=== PATIENT | male | born 1970 | race Caucasian/White ===

== ENCOUNTER 2020-03-18 07:40 | Outpatient (REF) | payer OTHER, SELFPAY ==
[2020-03-18 09:43] LABS: Cholesterol 125 mg/dL; Glucose Fasting 137 mg/dL (60-99); HDL Cholesterol 37 mg/dL; LDL Cholesterol Calculated 40 mg/dl; Triglycerides 240 mg/dL
[2020-03-18 09:55] LABS: Estimated Average Glucose 166 mg/dL; Hemoglobin A1c % 7.4 %
== END 2020-03-18 07:41 | disposition home or self-care (01) ==
LOC: HO.LAB 07:40
PROVIDERS: PCP Internal Medicine; Visit Provider Internal Medicine
DX: E11.9 Type 2 diabetes mellitus without complications (principal)
CPT/HCPCS: 80061; 82947; 83036

== ENCOUNTER 2020-05-21 05:36 | Emergency (ER) | payer OTHER, SELFPAY ==
[2020-05-21 06:01] VITALS: BP 143/90; PULSE 83; RESP 18; BMI 35.1
--- NOTE | 2020-05-21 06:12 | XR_ITS ---
EXAMINATION: LUMBOSACRAL SPINE 3 VIEWS CLINICAL INFORMATION: Low back pain. COMPARISON: None. TECHNIQUE: AP, lateral, spot lateral views of the lumbosacral spine are provided. FINDINGS: There are no fractures. The lumbar vertebrae are in normal alignment. There is mild disc height loss at L5/S1. Disc heights and vertebral body heights are otherwise well-preserved. XR/XR lumbar spine 2-3V IMPRESSION: Mild degenerative change without evidence of acute injury.
--- NOTE | 2020-05-21 06:12 | ED.BACK ---
HPI - Back Pain/Injury General Chief Complaint: Back Pain/Injury Stated Complaint: Back pain Time Seen by Provider: 05/21/20 06:08 Source: patient Mode of arrival: ambulatory Limitations: no limitations History of Present Illness HPI Narrative: Patient has history of chronic back pain off and on complaining of increased pain for last 4 days radiating to lower back and left leg patient had MRI last year and was told muscular pain and arthritis patient denies any recent trauma no weakness no bowel bladder or bowel incontinence patient able to ambulate patient denies any fever MD elicited complaint: back pain Pertinent past history: prior back pain Onset (ago): day(s) (4) Timing: constant Severity: moderate Similar Symptoms Previously: Yes Quality: sharp Location: lumbar spine Radiation: left upper leg Exacerbating factors: movement Relieving factors: none Associated symptoms: denies other symptoms Related Data Home Medications Medication Instructions Recorded Confirmed allopurinol 300 mg tablet 300 mg PO DAILY 03/19/20 03/19/20 aripiprazole 10 mg tablet 10 mg PO DAILY 03/19/20 03/19/20 atorvastatin 20 mg tablet 20 mg PO DAILY 03/19/20 03/19/20 blood sugar diagnostic #10 ea 03/19/20 03/19/20 citalopram 40 mg tablet 40 mg PO DAILY 03/19/20 03/19/20 clonazepam 2 mg tablet 0 mg PO 03/19/20 03/19/20 divalproex 125 mg tablet,delayed 0 mg PO 03/19/20 03/19/20 release ezetimibe 10 mg tablet 10 mg PO DAILY 03/19/20 03/19/20 fluticasone propionate 220 2 puff INHALATION BID 03/19/20 03/19/20 mcg/actuation HFA aerosol inhaler lancets 28 gauge #100 ea 03/19/20 03/19/20 loratadine 10 mg tablet 10 mg PO DAILY 03/19/20 03/19/20 metformin 500 mg tablet 500 mg PO BID 03/19/20 03/19/20 mirtazapine 45 mg tablet 45 mg PO BEDTIME 03/19/20 03/19/20 zolpidem 5 mg tablet 5 mg PO BEDTIME PRN 03/19/20 03/19/20 Previous Rx's Medication Instructions Recorded blood-glucose meter #1 ea 04/02/20 blood sugar diagnostic #100 ea 04/03/20 albuterol sulfate 90 mcg/actuation 2 puff PO Q4H PRN #18 g 05/12/20 aerosol inhaler cyclobenzaprine 10 mg PO Q8H #20 tab 05/21/20 oxycodone 5 mg PO Q6H PRN #20 tab 05/21/20 prednisone 40 mg PO DAILY #10 tab 05/21/20 Allergies Allergy/AdvReac Type Severity Reaction Status Date / Time No Known Allergies Allergy Verified 03/19/20 09:21 Review of Systems Review of Systems: Yes all other systems are reviewed and are negative [facility] Past Medical History Medical History Diabetes mellitus Surgical History History of surgery Family History Family History Father Asthma Mother Diabetes Past heart attack Family/Other Diabetes CAD (coronary artery disease) Social History Social History Alcohol intake: current Alcohol intake frequency: a few times a month Smoking Status: Never smoker Advance Directives: No Advance Directives Information Provided: No Physical Exam Vital Signs: Vital Signs: Last Vital Signs Pulse 83 05/21/20 06:01 Resp 18 05/21/20 06:01 BP 143/90 H 05/21/20 06:01 Body Mass Index 35.1 Const: General: cooperative, healthy appearing and comfortable Orientation/consciousness: patient oriented x3 Resp: Effort & Inspection: normal respiratory effort Auscultation: clear to auscultation bilaterally Cardio: Rate: regular rate Rhythm: regular rhythm Heart sounds: S1 normal heart sound present and S2 normal heart sound present GI: Inspection: Yes normal to inspection Palpation (GI): Soft to palpation and nontender : General: Yes no CVA tenderness Back/Spine/Pelvis: Back: no CVA tenderness Thoracic/Lumbar Spine: thoracic and lumbar spine normal to inspection, paraspinal muscle tenderness, thoraco-lumbar spasm, lumbar spinal tenderness at L4 and at L5 and straight leg raise positive (Left leg at 90 degrees) Neuro: Other: No loss of skin sensation at sacral area General: patient oriented x3, moves all extremities, Normal light touch and pain sensation and no focal motor deficits Gait exam (Neuro): Antalgic gait present Motor exam (neuro): 5/5 motor strength present throughout Deep tendon reflexes (DTR's): Right patellar reflex intensity grade: 2+ and Left patellar reflex intensity grade: 2+ MDM - Back Pain/Injury MDM Narrative Medical decision making narrative: Patient with left sciatica without any spinal cord injuries no focal neural deficit will give him pain medication and muscle relaxants Imaging Data Lumbar spine: Radiologist's impression: XR/XR lumbar spine 2-3V IMPRESSION: Mild degenerative change without evidence of acute injury. Discharge Plan Discharge Clinical Impression: Sciatica of left side associated with disorder of lumbar spine Patient Disposition: Home, Self-Care Instructions: Sciatica (ED) Additional Instructions: Rest, apply ice take pain medication as prescribed and follow-up with your PCP Prescriptions: New prednisone 20 mg tablet 40 mg PO DAILY Qty: 10 RF: 0 oxycodone 5 mg tablet 5 mg PO Q6H PRN (Reason: Pain (Scale Score 4-6)) Qty: 20 RF: 0 cyclobenzaprine 10 mg tablet 10 mg PO Q8H Qty: 20 RF: 0 No Action (DME) blood-glucose meter [FreeStyle Lite Meter] Kit See Rx Instructions .ROUTE .MEDSUPPLY Qty: 1 RF: 0 (DME) FreeStyle Lite Strips Strip See Rx Instructions .ROUTE .MEDSUPPLY Qty: 100 RF: 8 albuterol sulfate 90 mcg/actuation HFA aerosol inhaler 2 puff PO Q4H PRN (Reason: bronchospasm) Qty: 18 RF: 8 zolpidem 5 mg tablet 5 mg PO BEDTIME PRNRF: 0 allopurinol 300 mg tablet 300 mg PO DAILY RF: 0 divalproex 125 mg tablet,delayed release (DR/EC) 0 mg PO RF: 0 clonazepam 2 mg tablet 0 mg PO RF: 0 citalopram 40 mg tablet 40 mg PO DAILY RF: 0 loratadine 10 mg tablet 10 mg PO DAILY RF: 0 Flovent HFA 220 mcg/actuation HFA aerosol inhaler 2 puff inhalation BID RF: 0 atorvastatin 20 mg tablet 20 mg PO DAILY RF: 0 metformin 500 mg tablet 500 mg PO BID RF: 0 ezetimibe 10 mg tablet 10 mg PO DAILY RF: 0 mirtazapine 45 mg tablet 45 mg PO BEDTIME RF: 0 aripiprazole 10 mg tablet 10 mg PO DAILY RF: 0 (DME) FreeStyle Lite Strips Strip See Rx Instructions ea Not Applicable TID Qty: 10 RF: 0 (DME) lancets 28 gauge misc See Rx Instructions ea topical TID Qty: 100 RF: 0
[2020-05-21] MEDS: oxyCODONE HCl Immed Release 5 MG TABLET 10 MG PO (07:10)
[2020-05-21] MEDS: dexAMETHasone 2 MG TABLET 10 MG PO (07:11)
[2020-05-21] MEDS: Ketorolac Tromethamine 60 MG/2 ML VIAL IM (07:11)
== END 2020-05-21 07:21 | disposition home or self-care (01) ==
PROVIDERS: Emergency Provider Internal Medicine; PCP Internal Medicine
DX: M54.42 Lumbago with sciatica, left side (principal); E11.9 Type 2 diabetes mellitus without complications
CPT/HCPCS: 72100; 96372; 99283; 99284; J1885; J8540

== ENCOUNTER 2020-05-27 07:37 | Outpatient (REF) | payer OTHER, SELFPAY ==
[2020-05-27 08:45] LABS: Estimated Average Glucose 174 mg/dL; Hemoglobin A1c % 7.7 %
[2020-05-27 09:26] LABS: Cholesterol 127 mg/dL; HDL Cholesterol 43 mg/dL; LDL Cholesterol Calculated 46 mg/dl; Triglycerides 192 mg/dL
== END 2020-05-27 07:38 | disposition home or self-care (01) ==
LOC: HO.LAB 07:37
PROVIDERS: Visit Provider Internal Medicine
DX: E11.9 Type 2 diabetes mellitus without complications (principal)
CPT/HCPCS: 80061; 83036

== ENCOUNTER 2020-07-07 09:00 | Outpatient (RCR) | payer OTHER, SELFPAY ==
[2020-06-12 09:05] VITALS: BP 131/83; PULSE 78
--- NOTE | 2020-06-12 15:12 | MHC.PT.EP ---
[facility] [place] [facility] [place] [facility] [place] [facility] [address] Claudia Rehman [address] [phone] F: [phone] F: [phone] F: [phone] F: [phone] Physical Therapy Plan of Care Date of Evaluation: 06/12/20 Date of Surgery: Diagnosis: SCIATICA, UNSPECIFIED SIDE (M54.30) Assessment: RENO IS A PLEASANT 50 YO MALE WITH C/C OF LOW BACK PAIN AND EPISODES OF RIGHT SIDED SCIATICA. UPON EXAM, HE DEMONSTRATES DECREASED LE ROM, DECREASED SOFT TISSUE MOBILITY OF LOW BACK AND INCREASED PAIN. THE LENGTH STRENGTH IMBALANCES ARE FOSTERING A PATTERNED STYLE OF MOVEMENT LEADING TO INCREASED PAIN. FUNCTIONAL LIMITIATIONS INCLUIDE DECREASED TOLERANCE TO LIFTING, BENDING AND PUSHING/PULLING. HE REPORTS DIFFICULTY WITH HOMEMAKING TASKS, FITNESS ACTIVITIES AND STAIR CLIMBING WHEN THE KNEE PAIN IS MORE INTENSE. Frequency and Duration: The patient will be seen 2 X WEEK FOR 4 WEEKS Short Term Goals: INITIATE HEP AND PROMOTE SELF MANAGEMENT OF SYMPTOMS IN 2 WEEKS Recruiting Specialist Goals: INDEPENDENT HEP IN 6 WEEKS TO DEMONSTRATE FULL, PAIN FREE FUNCTIONAL SQUAT IN 6 WEEKS TO PERFORM ADLs WITH PAIN NO GREATER THAN 2/10 IN 6 WEEKS TO PERFORM 3:3 LIFTING TASKS WITH APPROPRIATE BODY MECHANICS IN 6 WEEKS Treatment Plan: Modalities to reduce pain, spasms and effusion. Manual therapy to restore motion and function. Therapeutic exercise to improve strength and flexibility. Neuromuscular re-education for posture and balance. Therapeutic activities to return to functional activities of daily living. Electronically signed by: DWIGHT QUINTEROS PT, DPT Please sign and return to therapist. Thank you for your referral.
== END 2020-08-24 13:45 | disposition other institution (70) ==
LOC: HO.PT 09:00
PROVIDERS: PCP Internal Medicine; Visit Provider Internal Medicine
DX: M54.30 Sciatica, unspecified side (principal)
CPT/HCPCS: 97110; 97112; 97140; 97161; 97535

== ENCOUNTER 2020-09-14 06:28 | Outpatient (REF) | payer OTHER, SELFPAY ==
[2020-09-14 07:26] LABS: MANUAL DIFF FLAG NO
[2020-09-14 07:31] LABS: Basophils Percent Auto 0.6 % (0-2); Eosinophils Absolute Auto 0.1 X10*3/uL (0.0-0.4); Eosinophils Percent Auto 2.8 % (0-4); Hematocrit 49.5 % (42-52); Imm Gran Abs Auto 0.02 X10*3/uL (0.00-0.03); Imm Gran Pct Auto 0.4 % (0.0-0.4); Lymphocytes Absolute Auto 1.6 X10*3/uL (1.2-4.9); Lymphocytes Percent Auto 30.7 % (20-40); Mean Corpuscular HGB Conc 32.3 g/dl (31.0-36.0); Mean Corpuscular Hemoglobin 25.8 pg (27.0-33.0); Mean Corpuscular Volume 79.7 fL (80-98); Mean Platelet Volume 11.9 fL (9.4-12.4); Monocytes Absolute Auto 0.6 X10*3/uL (0.1-1.2); Monocytes Percent Auto 12.2 % (2-11); Neutrophils Absolute Auto 2.7 X10*3/uL (2.0-8.3); Neutrophils Percent Auto 53.3 % (45-73); Platelet Count 148 X10*3/uL (160-400); Red Blood Count 6.21 X10*6/uL (4.60-5.80); Red Cell Distribution Width 14.1 % (11.0-16.0); White Blood Count 5.1 X10*3/uL (4.8-10.8)
[2020-09-14 07:50] LABS: Alanine Aminotransferase 48 U/L (0-40); Albumin Level 4.4 g/dL (3.5-5.0); Alkaline Phosphatase 68 U/L (39-117); Anion Gap 12 (12-20); Aspartate Amino Transferase 21 U/L (5-37); Bilirubin Total 0.8 mg/dL (0.0-1.0); Blood Urea Nitrogen 13 mg/dL (9-16); Calcium 9.4 mg/dL (8.4-10.2); Carbon Dioxide 26 mmol/L (22-29); Chloride 103 mmol/L (96-108); Cholesterol 121 mg/dL; Estimated Glomerular Filt Rate > 60; Glucose Fasting 178 mg/dL (60-99); HDL Cholesterol 36 mg/dL; LDL Cholesterol Calculated 41 mg/dl; Potassium 4.3 mmol/L (3.3-5.1); Sodium 137 mmol/L (135-145); Total Protein 7.2 g/dL (6.5-8.0); Triglycerides 220 mg/dL
[2020-09-14 08:12] LABS: TSH reflex Free T4 0.99 uIU/mL (0.32-4.0)
[2020-09-14 08:51] LABS: Glucose Urine UA NEG (NEG); Leukocyte Esterase Urine NEG (NEG); Nitrite Urine NEG (NEG); Urine Blood NEG (NEG); Urine Ketones NEG (NEG); Urine Protein NEG (NEG-TRACE)
[2020-09-14 08:54] LABS: Appearance Urine CLEAR; Color Urine YELLOW
[2020-09-14 10:01] LABS: Creatinine Urine 144.69 mg/dL; Microalbum/Creatinine Ratio Ur 43.5 ug/mg cr
== END 2020-09-14 06:29 | disposition home or self-care (01) ==
LOC: HO.LAB 06:28
PROVIDERS: PCP Internal Medicine; Visit Provider Internal Medicine
DX: J45.40 Moderate persistent asthma, uncomplicated (principal); K64.9 Unspecified hemorrhoids; E11.9 Type 2 diabetes mellitus without complications; E78.00 Pure hypercholesterolemia, unspecified; M10.9 Gout, unspecified; E66.9 Obesity, unspecified
CPT/HCPCS: 36415; 80053; 80061; 81003; 82043; 84443; 84550; 85025

== ENCOUNTER 2020-12-22 06:16 | Outpatient (REF) | payer OTHER, SELFPAY ==
[2020-12-22 07:24] LABS: Glucose Urine UA NEG (NEG); Leukocyte Esterase Urine NEG (NEG); Nitrite Urine NEG (NEG); Specific Gravity - Urine 1.025 (1.005-1.025); Urine Blood NEG (NEG); Urine Ketones NEG (NEG); Urine Protein NEG (NEG-TRACE)
[2020-12-22 07:25] LABS: Appearance Urine CLEAR; Color Urine YELLOW
[2020-12-22 07:55] LABS: Alanine Aminotransferase 40 U/L (0-40); Albumin Level 4.2 g/dL (3.5-5.0); Alkaline Phosphatase 60 U/L (39-117); Anion Gap 13 (12-20); Aspartate Amino Transferase 25 U/L (5-37); Bilirubin Total 0.8 mg/dL (0.0-1.0); Blood Urea Nitrogen 10 mg/dL (9-16); Calcium 9.6 mg/dL (8.4-10.2); Carbon Dioxide 29 mmol/L (22-29); Chloride 103 mmol/L (96-108); Cholesterol 166 mg/dL; Estimated Average Glucose 214 mg/dL; Estimated Glomerular Filt Rate > 60; Glucose Fasting 179 mg/dL (60-99); HDL Cholesterol 32 mg/dL; Hemoglobin A1c % 9.1 %; LDL Cholesterol Calculated 57 mg/dl; Potassium 4.5 mmol/L (3.3-5.1); Sodium 140 mmol/L (135-145); Triglycerides 385 mg/dL
[2020-12-22 07:56] LABS: Creatinine Urine 150.84 mg/dL; Microalbum/Creatinine Ratio Ur 17.8 ug/mg cr
== END 2020-12-22 06:17 | disposition home or self-care (01) ==
LOC: HO.LAB 06:16
PROVIDERS: PCP Internal Medicine; Visit Provider Internal Medicine
DX: M1A.00X0 Idiopathic chronic gout, unspecified site, without tophus (tophi) (principal); E11.9 Type 2 diabetes mellitus without complications; E78.00 Pure hypercholesterolemia, unspecified
CPT/HCPCS: 36415; 80053; 80061; 81003; 82043; 83036; 84550

== ENCOUNTER → 2021-02-12 08:41 | Outpatient (BNV) | payer OTHER, SELFPAY | PROVIDERS: PCP Internal Medicine; Visit Provider Internal Medicine | DX: D69.6 Thrombocytopenia, unspecified (principal) | CPT/HCPCS: 99213; 99214 ==

== ENCOUNTER 2021-04-06 06:43 | Outpatient (REF) | payer OTHER, SELFPAY ==
[2021-04-06 06:48] LABS: MANUAL DIFF FLAG NO
[2021-04-06 07:28] LABS: Basophils Percent Auto 0.5 % (0-2); Eosinophils Absolute Auto 0.2 X10*3/uL (0.0-0.4); Eosinophils Percent Auto 2.9 % (0-4); Hematocrit 49.7 % (42.0-52.0); Hemoglobin 16.4 g/dl (14.0-18.0); Imm Gran Abs Auto 0.03 X10*3/uL (0.00-0.03); Imm Gran Pct Auto 0.5 % (0.0-0.4); Lymphocytes Absolute Auto 1.5 X10*3/uL (1.2-4.9); Lymphocytes Percent Auto 26.3 % (20-40); Mean Corpuscular Hemoglobin 25.9 pg (27.0-33.0); Mean Corpuscular Volume 78.5 fL (80.0-98.0); Mean Platelet Volume 11.4 fL (9.4-12.4); Monocytes Absolute Auto 0.7 X10*3/uL (0.1-1.2); Neutrophils Absolute Auto 3.2 x10*3/uL (2.0-8.3); Neutrophils Percent Auto 57.8 % (45-73); Platelet Count 154 X10*3/uL (160-400); Red Blood Count 6.33 X10*6/uL (4.60-5.80); Red Cell Distribution Width 14.6 % (11.0-16.0); White Blood Count 5.6 X10*3/uL (4.8-10.8)
[2021-04-06 08:02] LABS: Alanine Aminotransferase 45 U/L (0-40); Albumin Level 4.5 g/dL (3.5-5.0); Alkaline Phosphatase 52 U/L (39-117); Anion Gap 11 (12-20); Aspartate Amino Transferase 28 U/L (5-37); Bilirubin Total 0.8 mg/dL (0.0-1.0); Blood Urea Nitrogen 13 mg/dL (9-16); Carbon Dioxide 28 mmol/L (22-29); Chloride 102 mmol/L (96-108); Cholesterol 124 mg/dL; Estimated Glomerular Filt Rate > 60; Glucose Fasting 148 mg/dL (60-99); HDL Cholesterol 38 mg/dL; LDL Cholesterol Calculated 43 mg/dl; Potassium 4.4 mmol/L (3.3-5.1); Sodium 137 mmol/L (135-145); Total Protein 7.5 g/dL (6.5-8.0); Triglycerides 217 mg/dL
[2021-04-06 08:16] LABS: Estimated Average Glucose 157 mg/dL; Hemoglobin A1c % 7.1 %
[2021-04-06 08:25] LABS: TSH reflex Free T4 1.42 uIU/mL (0.32-4.0)
[2021-04-06 09:05] LABS: Appearance Urine CLEAR; Color Urine YELLOW; Glucose Urine UA NEG (NEG); Leukocyte Esterase Urine NEG (NEG); Nitrite Urine NEG (NEG); Urine Blood NEG (NEG); Urine Ketones NEG (NEG); Urine Protein TRACE MG/DL (NEG-TRACE)
== END 2021-04-06 06:44 | disposition home or self-care (01) ==
LOC: HO.LAB 06:43
PROVIDERS: PCP Internal Medicine; Visit Provider Internal Medicine
DX: I10 Essential (primary) hypertension (principal); E78.00 Pure hypercholesterolemia, unspecified; E11.9 Type 2 diabetes mellitus without complications
CPT/HCPCS: 36415; 80053; 80061; 81003; 83036; 84443; 85025

== ENCOUNTER 2021-07-20 06:23 | Outpatient (REF) | payer OTHER, SELFPAY ==
[2021-07-20 06:31] LABS: MANUAL DIFF FLAG NO
[2021-07-20 07:06] LABS: Basophils Percent Auto 0.6 % (0-2); Eosinophils Absolute Auto 0.1 X10*3/uL (0.0-0.4); Eosinophils Percent Auto 2.7 % (0-4); Hemoglobin 15.9 g/dl (14.0-18.0); Imm Gran Abs Auto 0.02 X10*3/uL (0.00-0.03); Imm Gran Pct Auto 0.4 % (0.0-0.4); Lymphocytes Absolute Auto 1.7 X10*3/uL (1.2-4.9); Lymphocytes Percent Auto 31.4 % (20-40); Mean Corpuscular HGB Conc 32.4 g/dl (31.0-36.0); Mean Corpuscular Hemoglobin 25.8 pg (27.0-33.0); Mean Corpuscular Volume 79.4 fL (80.0-98.0); Mean Platelet Volume 12.1 fL (9.4-12.4); Monocytes Absolute Auto 0.7 X10*3/uL (0.1-1.2); Monocytes Percent Auto 13.5 % (2-11); Neutrophils Absolute Auto 2.7 x10*3/uL (2.0-8.3); Neutrophils Percent Auto 51.4 % (45-73); Platelet Count 158 X10*3/uL (160-400); Red Blood Count 6.17 X10*6/uL (4.60-5.80); Red Cell Distribution Width 14.6 % (11.0-16.0); White Blood Count 5.3 X10*3/uL (4.8-10.8)
[2021-07-20 08:02] LABS: Alanine Aminotransferase 40 U/L (0-40); Albumin Level 4.3 g/dL (3.5-5.0); Alkaline Phosphatase 56 U/L (39-117); Anion Gap 12 (12-20); Aspartate Amino Transferase 24 U/L (5-37); Bilirubin Total 0.6 mg/dL (0.0-1.0); Blood Urea Nitrogen 10 mg/dL (9-16); Calcium 9.9 mg/dL (8.4-10.2); Carbon Dioxide 29 mmol/L (22-29); Chloride 103 mmol/L (96-108); Cholesterol 137 mg/dL; Estimated Glomerular Filt Rate > 60; Glucose Fasting 166 mg/dL (60-99); HDL Cholesterol 39 mg/dL; LDL Cholesterol Calculated 52 mg/dl; Potassium 4.4 mmol/L (3.3-5.1); Sodium 140 mmol/L (135-145); Total Protein 7.4 g/dL (6.5-8.0); Triglycerides 230 mg/dL
[2021-07-20 08:03] LABS: Appearance Urine CLEAR; Color Urine YELLOW; Glucose Urine UA NEG (NEG); Leukocyte Esterase Urine NEG (NEG); Nitrite Urine NEG (NEG); PH 5.5 (5.0-8.0); Specific Gravity - Urine 1.025 (1.005-1.025); Urine Blood NEG (NEG); Urine Ketones NEG (NEG); Urine Protein NEG (NEG-TRACE)
[2021-07-20 08:05] LABS: TSH reflex Free T4 1.82 uIU/mL (0.32-4.0); Vitamin D 25-OH Total 17.8 ng/mL (>30)
[2021-07-20 08:20] LABS: Estimated Average Glucose 203 mg/dL; Hemoglobin A1c % 8.7 %
[2021-07-20 08:44] LABS: Creatinine Urine 168.64 mg/dL; Microalbum/Creatinine Ratio Ur 25.4 ug/mg cr
== END 2021-07-20 06:24 | disposition home or self-care (01) ==
LOC: HO.LAB 06:23
PROVIDERS: PCP Internal Medicine; Visit Provider Internal Medicine
DX: E78.00 Pure hypercholesterolemia, unspecified (principal); E55.9 Vitamin D deficiency, unspecified; E11.9 Type 2 diabetes mellitus without complications; I10 Essential (primary) hypertension
CPT/HCPCS: 36415; 80053; 80061; 81003; 82043; 82306; 83036; 84443; 85025

== ENCOUNTER 2021-10-13 06:31 | Outpatient (REF) | payer OTHER, SELFPAY ==
[2021-10-13 06:44] LABS: MANUAL DIFF FLAG NO
[2021-10-13 07:30] LABS: Basophils Percent Auto 0.5 % (0-2); Eosinophils Absolute Auto 0.2 X10*3/uL (0.0-0.4); Eosinophils Percent Auto 3.2 % (0-4); Hematocrit 49.5 % (42.0-52.0); Hemoglobin 16.2 g/dl (14.0-18.0); Imm Gran Abs Auto 0.04 X10*3/uL (0.00-0.03); Imm Gran Pct Auto 0.7 % (0.0-0.4); Lymphocytes Absolute Auto 1.7 X10*3/uL (1.2-4.9); Lymphocytes Percent Auto 30.9 % (20-40); Mean Corpuscular HGB Conc 32.7 g/dl (31.0-36.0); Mean Corpuscular Hemoglobin 25.8 pg (27.0-33.0); Mean Corpuscular Volume 78.7 fL (80.0-98.0); Mean Platelet Volume 11.8 fL (9.4-12.4); Monocytes Absolute Auto 0.6 X10*3/uL (0.1-1.2); Monocytes Percent Auto 10.7 % (2-11); Platelet Count 187 X10*3/uL (160-400); Red Blood Count 6.29 X10*6/uL (4.60-5.80); Red Cell Distribution Width 14.5 % (11.0-16.0); White Blood Count 5.6 X10*3/uL (4.8-10.8)
[2021-10-13 07:33] LABS: Appearance Urine CLEAR; Color Urine YELLOW; Glucose Urine UA NEG (NEG); Leukocyte Esterase Urine NEG (NEG); Nitrite Urine NEG (NEG); Specific Gravity - Urine 1.025 (1.005-1.025); UACC Culture Trigger NO; Urine Blood TRACE (NEG); Urine Ketones NEG (NEG); Urine Protein NEG (NEG-TRACE)
[2021-10-13 07:41] LABS: Estimated Average Glucose 157 mg/dL; Hemoglobin A1c % 7.1 %
[2021-10-13 07:48] LABS: Mucus Urine 3+ /LPF; RBC Urine 0-2 /HPF (0); Squamous Epithelial Cell Urine TRACE /LPF; WBC Urine 0 /HPF (0-4)
[2021-10-13 08:09] LABS: Alanine Aminotransferase 33 U/L (0-40); Albumin Level 4.3 g/dL (3.5-5.0); Alkaline Phosphatase 71 U/L (39-117); Anion Gap 11 (12-20); Aspartate Amino Transferase 21 U/L (5-37); Bilirubin Total 0.5 mg/dL (0.0-1.0); Blood Urea Nitrogen 12 mg/dL (9-16); Calcium 9.9 mg/dL (8.4-10.2); Carbon Dioxide 29 mmol/L (22-29); Chloride 103 mmol/L (96-108); Cholesterol 117 mg/dL; Estimated Glomerular Filt Rate > 60; Glucose Fasting 150 mg/dL (60-99); HDL Cholesterol 39 mg/dL; LDL Cholesterol Calculated 40 mg/dl; Potassium 4.6 mmol/L (3.3-5.1); Sodium 138 mmol/L (135-145); Total Protein 7.4 g/dL (6.5-8.0); Triglycerides 190 mg/dL
[2021-10-13 08:24] LABS: Uric Acid 6.6 mg/dL (3.4-7.0)
[2021-10-13 08:25] LABS: TSH reflex Free T4 2.19 uIU/mL (0.32-4.0)
== END 2021-10-13 06:32 | disposition home or self-care (01) ==
LOC: HO.LAB 06:31
PROVIDERS: PCP Internal Medicine; Visit Provider Internal Medicine
DX: I10 Essential (primary) hypertension (principal); E11.9 Type 2 diabetes mellitus without complications; E55.9 Vitamin D deficiency, unspecified; M10.9 Gout, unspecified; E78.00 Pure hypercholesterolemia, unspecified
CPT/HCPCS: 36415; 80053; 80061; 81001; 82306; 83036; 84443; 84550; 85025

== ENCOUNTER 2022-02-07 06:53 | Outpatient (REF) | payer OTHER, SELFPAY ==
[2022-02-07 07:05] LABS: MANUAL DIFF FLAG NO
[2022-02-07 07:56] LABS: Basophils Percent Auto 0.6 % (0-2); Eosinophils Absolute Auto 0.2 X10*3/uL (0.0-0.4); Eosinophils Percent Auto 3.7 % (0-4); Estimated Average Glucose 151 mg/dL; Hematocrit 49.8 % (42.0-52.0); Hemoglobin 16.4 g/dl (14.0-18.0); Hemoglobin A1c % 6.9 %; Imm Gran Abs Auto 0.03 X10*3/uL (0.00-0.03); Imm Gran Pct Auto 0.6 % (0.0-0.4); Lymphocytes Absolute Auto 1.6 X10*3/uL (1.2-4.9); Lymphocytes Percent Auto 32.1 % (20-40); Mean Corpuscular HGB Conc 32.9 g/dl (31.0-36.0); Mean Corpuscular Hemoglobin 26.2 pg (27.0-33.0); Mean Corpuscular Volume 79.4 fL (80.0-98.0); Mean Platelet Volume 12.3 fL (9.4-12.4); Monocytes Absolute Auto 0.5 X10*3/uL (0.1-1.2); Neutrophils Absolute Auto 2.6 x10*3/uL (2.0-8.3); Platelet Count 126 X10*3/uL (160-400); Red Blood Count 6.27 X10*6/uL (4.60-5.80); Red Cell Distribution Width 15.4 % (11.0-16.0); White Blood Count 4.9 X10*3/uL (4.8-10.8)
[2022-02-07 08:11] LABS: Alanine Aminotransferase 34 U/L (0-40); Albumin Level 4.5 g/dL (3.5-5.0); Alkaline Phosphatase 61 U/L (39-117); Anion Gap 13 (12-20); Aspartate Amino Transferase 20 U/L (5-37); Bilirubin Total 0.5 mg/dL (0.0-1.0); Blood Urea Nitrogen 13 mg/dL (9-16); Calcium 9.4 mg/dL (8.4-10.2); Carbon Dioxide 26 mmol/L (22-29); Chloride 105 mmol/L (96-108); Cholesterol 119 mg/dL; Estimated Glomerular Filt Rate > 60; Glucose Fasting 149 mg/dL (60-99); HDL Cholesterol 41 mg/dL; LDL Cholesterol Calculated 47 mg/dl; Potassium 4.3 mmol/L (3.3-5.1); Sodium 140 mmol/L (135-145); Total Protein 7.4 g/dL (6.5-8.0); Triglycerides 159 mg/dL; Uric Acid 6.9 mg/dL (3.4-7.0)
[2022-02-07 08:23] LABS: Appearance Urine Clear; Color Urine Yellow; Glucose Urine UA Negative (Negative); Leukocyte Esterase Urine Negative (Negative); Nitrite Urine Negative (Negative); PH 5.5 (5.0-9.0); Urine Blood Negative (Negative); Urine Ketones Negative (Negative); Urine Protein Trace mg/dL (Neg-Trace)
[2022-02-07 08:33] LABS: TSH reflex Free T4 1.52 uIU/mL (0.32-4.0); Vitamin D 25-OH Total 34.7 ng/mL (>30)
[2022-02-07 09:14] LABS: Creatinine Urine 151.76 mg/dL
== END 2022-02-07 06:54 | disposition home or self-care (01) ==
LOC: HO.LAB 06:53
PROVIDERS: PCP Internal Medicine; Visit Provider Internal Medicine
DX: M10.9 Gout, unspecified (principal); E78.00 Pure hypercholesterolemia, unspecified; E11.9 Type 2 diabetes mellitus without complications; I10 Essential (primary) hypertension; E55.9 Vitamin D deficiency, unspecified
CPT/HCPCS: 36415; 80053; 80061; 81003; 82043; 82306; 83036; 84443; 84550; 85025

== ENCOUNTER → 2022-03-17 07:48 | Outpatient (BNVA) | payer OTHER, SELFPAY | PROVIDERS: PCP Internal Medicine; Visit Provider Nurse Practitioner Family | DX: G47.33 Obstructive sleep apnea (adult) (pediatric) (principal) | CPT/HCPCS: 99202 ==

== ENCOUNTER 2022-06-20 07:08 | Outpatient (REF) | payer OTHER, SELFPAY ==
[2022-06-20 07:19] LABS: MANUAL DIFF FLAG NO
[2022-06-20 07:28] LABS: Basophils Percent Auto 0.7 % (0-2); Eosinophils Absolute Auto 0.1 X10*3/uL (0.0-0.4); Eosinophils Percent Auto 2.6 % (0-4); Hematocrit 49.7 % (42.0-52.0); Hemoglobin 16.7 g/dl (14.0-18.0); Imm Gran Abs Auto 0.02 X10*3/uL (0.00-0.03); Imm Gran Pct Auto 0.4 % (0.0-0.4); Lymphocytes Absolute Auto 1.7 X10*3/uL (1.2-4.9); Lymphocytes Percent Auto 31.5 % (20-40); Mean Corpuscular HGB Conc 33.6 g/dl (31.0-36.0); Mean Corpuscular Volume 77.3 fL (80.0-98.0); Mean Platelet Volume 10.9 fL (9.4-12.4); Monocytes Absolute Auto 0.7 X10*3/uL (0.1-1.2); Monocytes Percent Auto 12.3 % (2-11); Neutrophils Absolute Auto 2.9 x10*3/uL (2.0-8.3); Neutrophils Percent Auto 52.5 % (45-73); Platelet Count 154 X10*3/uL (160-400); Red Blood Count 6.43 X10*6/uL (4.60-5.80); Red Cell Distribution Width 14.6 % (11.0-16.0); White Blood Count 5.5 X10*3/uL (4.8-10.8)
[2022-06-20 08:02] LABS: Estimated Average Glucose 197 mg/dL; Hemoglobin A1c % 8.5 %
[2022-06-20 08:03] LABS: Alanine Aminotransferase 40 U/L (0-40); Albumin Level 4.4 g/dL (3.5-5.0); Alkaline Phosphatase 73 U/L (39-117); Anion Gap 13 (12-20); Aspartate Amino Transferase 23 U/L (5-37); Bilirubin Total 0.5 mg/dL (0.0-1.0); Blood Urea Nitrogen 9 mg/dL (9-16); Calcium 9.7 mg/dL (8.4-10.2); Carbon Dioxide 25 mmol/L (22-29); Chloride 106 mmol/L (96-108); Cholesterol 106 mg/dL; Estimated Glomerular Filt Rate > 60; Glucose Fasting 168 mg/dL (60-99); HDL Cholesterol 35 mg/dL; LDL Cholesterol Calculated 46 mg/dl; Potassium 4.1 mmol/L (3.3-5.1); Sodium 140 mmol/L (135-145); Total Protein 7.2 g/dL (6.5-8.0); Triglycerides 127 mg/dL; Uric Acid 5.1 mg/dL (3.4-7.0)
[2022-06-20 08:09] LABS: TSH reflex Free T4 2.07 uIU/mL (0.32-4.0)
[2022-06-20 08:24] LABS: Appearance Urine Clear; Color Urine Yellow; Glucose Urine UA 100 mg/dL (Negative); Leukocyte Esterase Urine Negative (Negative); Nitrite Urine Negative (Negative); PH 5.5 (5.0-9.0); Specific Gravity - Urine 1.015 (1.005-1.025); Urine Blood Negative (Negative); Urine Ketones Negative (Negative); Urine Protein Trace mg/dL (Neg-Trace)
[2022-06-20 08:42] LABS: Creatinine Urine 175.03 mg/dL; Microalbum/Creatinine Ratio Ur 25.1 ug/mg cr
== END 2022-06-20 07:09 | disposition home or self-care (01) ==
LOC: HO.LAB 07:08
PROVIDERS: PCP Internal Medicine; Visit Provider Internal Medicine
DX: I10 Essential (primary) hypertension (principal); E78.00 Pure hypercholesterolemia, unspecified; E11.9 Type 2 diabetes mellitus without complications; M10.9 Gout, unspecified; E55.9 Vitamin D deficiency, unspecified
CPT/HCPCS: 36415; 80053; 80061; 81003; 82043; 82306; 83036; 84443; 84550; 85025

== ENCOUNTER → 2022-07-25 09:47 | Outpatient (BNVA) | payer OTHER, SELFPAY | PROVIDERS: PCP Internal Medicine; Visit Provider Surgery | DX: K64.2 Third degree hemorrhoids (principal) | CPT/HCPCS: 99202 ==

== ENCOUNTER 2022-08-17 05:56 | Day surgery (SDC) | payer OTHER, SELFPAY ==
[2022-08-11 10:20] VITALS: BMI 34.3
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
[2022-08-17] VITALS (13 sets, daily range): BP systolic 134–171; BP diastolic 75–114; PULSE 80–98; RESP 16–18; TEMP 36.4–36.7; O2SAT 93–99
[2022-08-17 06:27] LABS: Glucose, Whole Blood 198 mg/dL (60-115)
[2022-08-17] MEDS: Lactated Ringers 1,000 ML 100 ML IVCONT (06:37)
--- NOTE | 2022-08-17 08:27 | W.PM.OPN ---
Operative Note Operative Note Date of Service: 08/17/22 Narrative: Preoperative diagnosis: [] Symptomatic internal and external hemorrhoids Postop diagnosis: [] Same Surgeon: [] Jeremy Translational Specialist: [] Type of Anesthesia: [] General Indication for surgery: [] Enlarging symptomatic hemorrhoids. Findings: [] At 07:00 o'clock and 11 o'clock position, in lithotomy, enlarged, engorged internal and external hemorrhoids. Procedure: Hemorrhoidectomy, proctosigmoidoscopy [] Patient is brought to the operating room, placed on the operating table in supine position, after adequate level of general anesthesia was induced, patient is placed in a lithotomy position. Rectal exam was 1st undertaken with demonstrate no gross endoluminal pathology aside from the above-mentioned enlarged, engorged hemorrhoidal tissue . Proctosigmoidoscopy demonstrated no gross endoluminal pathology. Next the hemorrhoids were approached sequentially starting with the 07:00 o'clock position hemorrhoid . Each was grasped using a grasper, and stay suture placed at the apex using 2-0 chromic. This was tied. hemorrhoid was excised and running 2-0 chromic was uneventfully secured. At the 11 o'clock position, the hemorrhoid was grasped, and transected using thunder beat ligature device. Wound was infiltrated with 0.5% Marcaine with epinephrine a completion. At completion of the procedure, wounds irrigated, secured hemostasis, and a Gelfoam anal plug followed by sterile dressing were placed. Sponge, needle, and instrument counts were reported to be correct. Patient tolerated the procedure well and emerged from anesthesia in stable condition. EBL minimal
[2022-08-17] MEDS: fentaNYL citrate/PF 100 MCG/2 ML VIAL 50 MCG IVPUSH ×2 (08:40→08:54)
[2022-08-17] MEDS: oxyCODONE HCl Immed Release 5 MG TABLET PO (08:40)
[2022-08-17] MEDS: HYDROmorphone HCl 0.5 MG/0.5 ML SYRINGE 0.25 MG IVPUSH (09:18)
== END 2022-08-17 10:12 | disposition home or self-care (01) ==
PROVIDERS: PCP Internal Medicine; Visit Provider Surgery
PROC: (CPT 46260; principal; 2022-08-17 07:30)
PROC: 0DJD8ZZ Inspection of Lower Intestinal Tract, Via Natural or Artificial Opening Endoscopic (ICD-10-PCS; CPT 45300; 2022-08-17 07:30)
DX: K64.2 Third degree hemorrhoids (principal); K64.8 Other hemorrhoids; K64.4 Residual hemorrhoidal skin tags; K59.00 Constipation, unspecified; G47.33 Obstructive sleep apnea (adult) (pediatric); J45.909 Unspecified asthma, uncomplicated; E11.9 Type 2 diabetes mellitus without complications; Z79.51 Long term (current) use of inhaled steroids; Z79.84 Long term (current) use of oral hypoglycemic drugs
CPT/HCPCS: 46260; 82947; 88304; J0690; J1100; J1170; J2250; J2405; J2795; J3010

== ENCOUNTER → 2022-08-24 10:32 | Outpatient (BNVA) | payer OTHER, SELFPAY | PROVIDERS: PCP Internal Medicine; Visit Provider Surgery ==

== ENCOUNTER → 2022-09-02 09:18 | Outpatient (BNVA) | payer OTHER, SELFPAY | PROVIDERS: PCP Internal Medicine; Visit Provider Nurse Practitioner Family | DX: G47.33 Obstructive sleep apnea (adult) (pediatric) (principal) | CPT/HCPCS: 99212 ==

== ENCOUNTER → 2022-09-22 08:43 | Outpatient (REF) | payer OTHER, SELFPAY | LOC: HO.SL 08:43 | PROVIDERS: PCP Internal Medicine; Visit Provider Nurse Practitioner Family | DX: G47.33 Obstructive sleep apnea (adult) (pediatric) (principal) | CPT/HCPCS: 95806 ==

== ENCOUNTER 2022-09-28 07:41 | Outpatient (REF) | payer OTHER, SELFPAY ==
[2022-09-28 07:54] LABS: MANUAL DIFF FLAG NO
[2022-09-28 08:10] LABS: Basophils Percent Auto 0.4 % (0-2); Eosinophils Absolute Auto 0.2 X10*3/uL (0.0-0.4); Hematocrit 49.1 % (42.0-52.0); Hemoglobin 16.1 g/dl (14.0-18.0); Imm Gran Abs Auto 0.02 X10*3/uL (0.00-0.03); Imm Gran Pct Auto 0.4 % (0.0-0.4); Lymphocytes Absolute Auto 1.6 X10*3/uL (1.2-4.9); Lymphocytes Percent Auto 32.2 % (20-40); Mean Corpuscular HGB Conc 32.8 g/dl (31.0-36.0); Mean Corpuscular Hemoglobin 25.8 pg (27.0-33.0); Mean Corpuscular Volume 78.8 fL (80.0-98.0); Mean Platelet Volume 11.6 fL (9.4-12.4); Monocytes Absolute Auto 0.5 X10*3/uL (0.1-1.2); Monocytes Percent Auto 10.8 % (2-11); Neutrophils Absolute Auto 2.7 x10*3/uL (2.0-8.3); Neutrophils Percent Auto 53.2 % (45-73); Platelet Count 147 X10*3/uL (160-400); Red Blood Count 6.23 X10*6/uL (4.60-5.80); Red Cell Distribution Width 14.6 % (11.0-16.0)
[2022-09-28 08:25] LABS: Estimated Average Glucose 169 mg/dL; Hemoglobin A1c % 7.5 %
[2022-09-28 08:57] LABS: Alanine Aminotransferase 24 U/L (0-40); Albumin Level 4.3 g/dL (3.5-5.0); Alkaline Phosphatase 68 U/L (39-117); Anion Gap 15 (12-20); Aspartate Amino Transferase 19 U/L (5-37); Bilirubin Total 0.7 mg/dL (0.0-1.0); Blood Urea Nitrogen 9 mg/dL (9-16); Calcium 9.8 mg/dL (8.4-10.2); Carbon Dioxide 24 mmol/L (22-29); Chloride 107 mmol/L (96-108); Cholesterol 112 mg/dL; Estimated Glomerular Filt Rate > 60; Glucose Fasting 129 mg/dL (60-99); HDL Cholesterol 38 mg/dL; LDL Cholesterol Calculated 43 mg/dl; Potassium 4.5 mmol/L (3.3-5.1); Sodium 141 mmol/L (135-145); Total Protein 7.1 g/dL (6.5-8.0); Triglycerides 156 mg/dL; Uric Acid 5.6 mg/dL (3.4-7.0)
[2022-09-28 09:13] LABS: TSH reflex Free T4 2.28 uIU/mL (0.32-4.0)
[2022-09-28 09:26] LABS: Appearance Urine Clear; Color Urine Yellow; Glucose Urine UA Negative (Negative); Leukocyte Esterase Urine Negative (Negative); Nitrite Urine Negative (Negative); PH 5.5 (5.0-9.0); Specific Gravity - Urine 1.015 (1.005-1.025); Urine Blood Negative (Negative); Urine Ketones Negative (Negative); Urine Protein Negative (Neg-Trace)
[2022-09-28 09:54] LABS: Microalbum/Creatinine Ratio Ur 14.9 ug/mg cr
== END 2022-09-28 07:42 | disposition home or self-care (01) ==
LOC: HO.LAB 07:41
PROVIDERS: PCP Internal Medicine; Visit Provider Internal Medicine
DX: R30.0 Dysuria (principal); M10.9 Gout, unspecified; I10 Essential (primary) hypertension; E78.00 Pure hypercholesterolemia, unspecified; E11.9 Type 2 diabetes mellitus without complications; E55.9 Vitamin D deficiency, unspecified
CPT/HCPCS: 36415; 80053; 80061; 81003; 82043; 82306; 83036; 84443; 84550; 85025

== ENCOUNTER 2023-01-02 08:50 | Outpatient (AMB) | payer OTHER, SELFPAY ==
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
[2023-01-02 08:56] VITALS: BP 118/72; PULSE 72; O2SAT 96; BMI 35.3
== END 2023-01-02 09:14 | disposition home or self-care (01) ==
PROVIDERS: Visit Provider Nurse Practitioner Family
DX: G47.33 Obstructive sleep apnea (adult) (pediatric) (principal)
CPT/HCPCS: 99213

== ENCOUNTER → 2023-01-02 08:50 | Outpatient (BNVA) | payer OTHER, SELFPAY | PROVIDERS: Visit Provider Nurse Practitioner Family | DX: G47.33 Obstructive sleep apnea (adult) (pediatric) (principal) | CPT/HCPCS: 99212 ==

== ENCOUNTER 2023-01-26 06:34 | Outpatient (REF) | payer OTHER, SELFPAY ==
[2023-01-26 06:47] LABS: MANUAL DIFF FLAG NO
[2023-01-26 07:04] LABS: Basophils Percent Auto 0.8 % (0-2); Eosinophils Absolute Auto 0.2 X10*3/uL (0.0-0.4); Eosinophils Percent Auto 3.3 % (0-4); Hematocrit 48.5 % (42.0-52.0); Hemoglobin 15.7 g/dl (14.0-18.0); Imm Gran Abs Auto 0.01 X10*3/uL (0.00-0.03); Imm Gran Pct Auto 0.2 % (0.0-0.4); Lymphocytes Absolute Auto 1.5 X10*3/uL (1.2-4.9); Mean Corpuscular HGB Conc 32.4 g/dl (31.0-36.0); Mean Corpuscular Hemoglobin 25.8 pg (27.0-33.0); Mean Corpuscular Volume 79.6 fL (80.0-98.0); Mean Platelet Volume 11.9 fL (9.4-12.4); Monocytes Absolute Auto 0.6 X10*3/uL (0.1-1.2); Monocytes Percent Auto 11.6 % (2-11); Neutrophils Absolute Auto 2.9 x10*3/uL (2.0-8.3); Neutrophils Percent Auto 55.1 % (45-73); Platelet Count 141 X10*3/uL (160-400); Red Blood Count 6.09 X10*6/uL (4.60-5.80); Red Cell Distribution Width 15.1 % (11.0-16.0); White Blood Count 5.2 X10*3/uL (4.8-10.8)
[2023-01-26 07:12] LABS: Estimated Average Glucose 157 mg/dL; Hemoglobin A1c % 7.1 % (<6.0)
[2023-01-26 07:28] LABS: Alanine Aminotransferase 39 U/L (0-40); Albumin Level 4.2 g/dL (3.5-5.0); Alkaline Phosphatase 79 U/L (39-117); Anion Gap 11 (12-20); Aspartate Amino Transferase 22 U/L (5-37); Bilirubin Total 0.3 mg/dL (0.0-1.0); Blood Urea Nitrogen 19 mg/dL (9-16); Calcium 9.5 mg/dL (8.4-10.2); Carbon Dioxide 23 mmol/L (22-29); Chloride 109 mmol/L (96-108); Cholesterol 123 mg/dL (<200); Estimated Glomerular Filt Rate > 60; Glucose Fasting 153 mg/dL (60-99); HDL Cholesterol 37 mg/dL (>40); LDL Cholesterol Calculated 25 mg/dL (<100); Potassium 4.2 mmol/L (3.3-5.1); Sodium 139 mmol/L (135-145); Total Protein 7.3 g/dL (6.5-8.0); Triglycerides 306 mg/dL (<150); Uric Acid 7.3 mg/dL (3.4-7.0)
[2023-01-26 07:45] LABS: TSH reflex Free T4 1.97 uIU/mL (0.32-4.0)
[2023-01-26 10:40] LABS: Creatinine Urine 128.44 mg/dL; Microalbum/Creatinine Ratio Ur 32.7 ug/mg cr (<30)
[2023-01-26 11:24] LABS: Appearance Urine Clear; Color Urine Yellow; Glucose Urine UA Negative (Negative); Leukocyte Esterase Urine Negative (Negative); Nitrite Urine Negative (Negative); PH 6.5 (5.0-9.0); Urine Blood Negative (Negative); Urine Ketones Negative (Negative); Urine Protein Trace mg/dL (Neg-Trace)
== END 2023-01-26 06:35 | disposition home or self-care (01) ==
LOC: HO.LAB 06:34
PROVIDERS: PCP Internal Medicine; Visit Provider Internal Medicine
DX: M10.9 Gout, unspecified (principal); R30.0 Dysuria; I10 Essential (primary) hypertension; E11.9 Type 2 diabetes mellitus without complications; E78.00 Pure hypercholesterolemia, unspecified
CPT/HCPCS: 36415; 80053; 80061; 81003; 82043; 83036; 84443; 84550; 85025

== ENCOUNTER 2023-02-06 09:20 | Outpatient (AMB) | payer OTHER, SELFPAY ==
[2023-02-06 09:25] VITALS: BP 128/84; PULSE 73; O2SAT 99; BMI 34.9
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
== END 2023-02-06 09:53 | disposition home or self-care (01) ==
PROVIDERS: Visit Provider Internal Medicine
DX: E11.9 Type 2 diabetes mellitus without complications (principal); J45.40 Moderate persistent asthma, uncomplicated; E55.9 Vitamin D deficiency, unspecified; E78.00 Pure hypercholesterolemia, unspecified; M79.641 Pain in right hand; M54.42 Lumbago with sciatica, left side; G47.00 Insomnia, unspecified
CPT/HCPCS: 99214

== ENCOUNTER 2023-02-07 08:08 | Outpatient (REF) | payer OTHER, SELFPAY ==
--- NOTE | ~2023-02-07 | XR_ITS ---
EXAMINATION: XR LUMBOSACRAL SPINE CLINICAL INFORMATION: Back pain. COMPARISON: 05/21/2020. TECHNIQUE: Three views of the lumbosacral spine. FINDINGS: Mild scoliosis convex right apex at L3. Similar to previous. The SI joints are grossly patent. Once again some evidence of degenerative changes with loss of disc height and some spurring in the endplates in multiple levels, sparing L4-L5. Some sclerotic changes in the posterior elements in the region of L5-S1 may indicate early degenerative changes. There is no listhesis or compression injury. XR/XR lumbar spine 2-3V IMPRESSION: Once again some mild degenerative changes are seen here, most noted at the upper lumbar and thoracolumbar levels. No acute bony finding. No listhesis or compression injury. Mild scoliosis.
== END 2023-02-07 08:09 | disposition home or self-care (01) ==
LOC: HO.XRAY 08:08
PROVIDERS: PCP Internal Medicine; Visit Provider Internal Medicine
DX: M54.50 Low back pain, unspecified (principal)
CPT/HCPCS: 72100

== ENCOUNTER → 2023-02-19 19:30 | Outpatient (REF) | payer OTHER, SELFPAY | LOC: HO.SL 19:30 | PROVIDERS: PCP Internal Medicine; Visit Provider Nurse Practitioner Family | DX: G47.33 Obstructive sleep apnea (adult) (pediatric) (principal) | CPT/HCPCS: 95810 ==

== ENCOUNTER → 2023-02-19 22:38 | Outpatient (BNV) | payer OTHER, SELFPAY | PROVIDERS: PCP Internal Medicine; Visit Provider Psychiatry & Neurology Neurology | DX: G47.33 Obstructive sleep apnea (adult) (pediatric) (principal) | CPT/HCPCS: 95810 ==

== ENCOUNTER 2023-05-05 08:41 | Outpatient (AMB) | payer OTHER, SELFPAY ==
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
[2023-05-05 08:44] VITALS: BP 120/70; PULSE 81; RESP 16; O2SAT 98; BMI 34.6
== END 2023-05-05 09:02 | disposition home or self-care (01) ==
PROVIDERS: PCP Internal Medicine; Visit Provider Nurse Practitioner Family
DX: G47.33 Obstructive sleep apnea (adult) (pediatric) (principal)
CPT/HCPCS: 99213

== ENCOUNTER → 2023-05-05 08:41 | Outpatient (BNVA) | payer OTHER, SELFPAY | PROVIDERS: PCP Internal Medicine; Visit Provider Nurse Practitioner Family | DX: G47.33 Obstructive sleep apnea (adult) (pediatric) (principal) | CPT/HCPCS: 99212 ==

== ENCOUNTER 2023-06-07 07:17 | Outpatient (REF) | payer OTHER, SELFPAY ==
[2023-06-07 08:22] LABS: Basophils Percent Auto 0.5 % (0-2); Eosinophils Absolute Auto 0.2 X10*3/uL (0.0-0.4); Eosinophils Percent Auto 2.7 % (0-4); Hematocrit 49.8 % (42.0-52.0); Hemoglobin 16.4 g/dl (14.0-18.0); Imm Gran Abs Auto 0.02 X10*3/uL (0.00-0.03); Imm Gran Pct Auto 0.4 % (0.0-0.4); Lymphocytes Absolute Auto 1.4 X10*3/uL (1.2-4.9); Lymphocytes Percent Auto 24.5 % (20-40); MANUAL DIFF FLAG NO; Mean Corpuscular HGB Conc 32.9 g/dl (31.0-36.0); Mean Corpuscular Volume 78.9 fL (80.0-98.0); Mean Platelet Volume 12.3 fL (9.4-12.4); Monocytes Absolute Auto 0.6 X10*3/uL (0.1-1.2); Monocytes Percent Auto 10.8 % (2-11); Neutrophils Absolute Auto 3.4 x10*3/uL (2.0-8.3); Neutrophils Percent Auto 61.1 % (45-73); Platelet Count 168 X10*3/uL (160-400); Red Blood Count 6.31 X10*6/uL (4.60-5.80); Red Cell Distribution Width 15.3 % (11.0-16.0); White Blood Count 5.5 X10*3/uL (4.8-10.8)
[2023-06-07 08:34] LABS: Appearance Urine Clear; Color Urine Yellow; Glucose Urine UA Negative (Negative); Leukocyte Esterase Urine Negative (Negative); Nitrite Urine Negative (Negative); Urine Blood Negative (Negative); Urine Ketones Negative (Negative); Urine Protein Trace mg/dL (Neg-Trace)
[2023-06-07 08:45] LABS: Estimated Average Glucose 151 mg/dL; Hemoglobin A1c % 6.9 % (<6.0)
[2023-06-07 09:03] LABS: Alanine Aminotransferase 47 U/L (0-40); Albumin Level 4.5 g/dL (3.5-5.0); Alkaline Phosphatase 54 U/L (39-117); Anion Gap 15 (12-20); Aspartate Amino Transferase 33 U/L (5-37); Bilirubin Total 0.6 mg/dL (0.0-1.0); Blood Urea Nitrogen 10 mg/dL (9-16); Calcium 10.3 mg/dL (8.4-10.2); Carbon Dioxide 23 mmol/L (22-29); Chloride 105 mmol/L (96-108); Cholesterol 109 mg/dL (<200); Estimated Glomerular Filt Rate > 60; Glucose Fasting 130 mg/dL (60-99); HDL Cholesterol 41 mg/dL (>40); LDL Cholesterol Calculated 52 mg/dL (<100); Potassium 4.3 mmol/L (3.3-5.1); Sodium 139 mmol/L (135-145); Total Protein 7.8 g/dL (6.5-8.0); Triglycerides 84 mg/dL (<150); Uric Acid 7.5 mg/dL (3.4-7.0)
[2023-06-07 09:17] LABS: Creatinine Urine 207.37 mg/dL; Microalbum/Creatinine Ratio Ur 24.1 ug/mg cr (<30)
[2023-06-07 09:18] LABS: TSH reflex Free T4 1.71 uIU/mL (0.32-4.0); Vitamin D 25-OH Total 36.2 ng/mL (>30)
== END 2023-06-07 07:18 | disposition home or self-care (01) ==
LOC: HO.LAB 07:17
PROVIDERS: PCP Internal Medicine; Visit Provider Internal Medicine
DX: I10 Essential (primary) hypertension (principal); E78.00 Pure hypercholesterolemia, unspecified; E55.9 Vitamin D deficiency, unspecified; R30.0 Dysuria; M10.9 Gout, unspecified; E11.9 Type 2 diabetes mellitus without complications
CPT/HCPCS: 36415; 80053; 80061; 81003; 82043; 82306; 82570; 83036; 84443; 84550; 85025

== ENCOUNTER 2023-06-13 08:56 | Outpatient (AMB) | payer OTHER, SELFPAY ==
[2023-06-13 08:58] VITALS: BP 126/80; PULSE 93; O2SAT 97; BMI 33.7
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
== END 2023-06-13 09:37 | disposition home or self-care (01) ==
PROVIDERS: PCP Internal Medicine; Visit Provider Internal Medicine
DX: E78.00 Pure hypercholesterolemia, unspecified (principal); E11.9 Type 2 diabetes mellitus without complications; D69.6 Thrombocytopenia, unspecified; F31.9 Bipolar disorder, unspecified; J45.40 Moderate persistent asthma, uncomplicated; J30.1 Allergic rhinitis due to pollen; M1A.00X0 Idiopathic chronic gout, unspecified site, without tophus (tophi); D75.1 Secondary polycythemia; G47.33 Obstructive sleep apnea (adult) (pediatric); E55.9 Vitamin D deficiency, unspecified; M54.42 Lumbago with sciatica, left side; G47.00 Insomnia, unspecified
CPT/HCPCS: 99214

== ENCOUNTER 2023-10-02 07:40 | Outpatient (REF) | payer OTHER, SELFPAY ==
[2023-10-02 08:04] LABS: MANUAL DIFF FLAG NO
[2023-10-02 08:23] LABS: Basophils Absolute Auto 0.1 X10*3/uL (0.0-0.2); Basophils Percent Auto 0.8 % (0-2); Eosinophils Absolute Auto 0.1 X10*3/uL (0.0-0.4); Eosinophils Percent Auto 2.2 % (0-4); Hematocrit 49.7 % (42.0-52.0); Hemoglobin 16.5 g/dl (14.0-18.0); Imm Gran Abs Auto 0.01 X10*3/uL (0.00-0.03); Imm Gran Pct Auto 0.2 % (0.0-0.4); Lymphocytes Absolute Auto 1.7 X10*3/uL (1.2-4.9); Lymphocytes Percent Auto 28.9 % (20-40); Mean Corpuscular HGB Conc 33.2 g/dl (31.0-36.0); Mean Corpuscular Hemoglobin 26.1 pg (27.0-33.0); Mean Corpuscular Volume 78.6 fL (80.0-98.0); Mean Platelet Volume 11.4 fL (9.4-12.4); Monocytes Absolute Auto 0.7 X10*3/uL (0.1-1.2); Monocytes Percent Auto 11.4 % (2-11); Neutrophils Absolute Auto 3.4 x10*3/uL (2.0-8.3); Neutrophils Percent Auto 56.5 % (45-73); Platelet Count 172 X10*3/uL (160-400); Red Blood Count 6.32 X10*6/uL (4.60-5.80); Red Cell Distribution Width 14.8 % (11.0-16.0)
[2023-10-02 08:34] LABS: Estimated Average Glucose 154 mg/dL
[2023-10-02 09:01] LABS: Alanine Aminotransferase 52 U/L (0-40); Albumin Level 4.4 g/dL (3.5-5.0); Alkaline Phosphatase 57 U/L (39-117); Anion Gap 15 (12-20); Aspartate Amino Transferase 26 U/L (5-37); Bilirubin Total 0.5 mg/dL (0.0-1.0); Blood Urea Nitrogen 14 mg/dL (9-16); Carbon Dioxide 25 mmol/L (22-29); Chloride 106 mmol/L (96-108); Cholesterol 115 mg/dL (<200); Estimated Glomerular Filt Rate > 60; Glucose Fasting 142 mg/dL (60-99); HDL Cholesterol 40 mg/dL (>40); LDL Cholesterol Calculated 52 mg/dL (<100); Potassium 4.5 mmol/L (3.3-5.1); Sodium 141 mmol/L (135-145); Total Protein 7.6 g/dL (6.5-8.0); Triglycerides 115 mg/dL (<150); Uric Acid 6.6 mg/dL (3.4-7.0)
[2023-10-02 09:03] LABS: Vitamin D 25-OH Total 36.4 ng/mL (>30)
[2023-10-02 09:16] LABS: Appearance Urine Clear; Color Urine Yellow; Glucose Urine UA Negative (Negative); Leukocyte Esterase Urine Negative (Negative); Nitrite Urine Negative (Negative); PH 6.5 (5.0-9.0); Specific Gravity - Urine 1.015 (1.005-1.025); Urine Blood Negative (Negative); Urine Ketones Negative (Negative); Urine Protein Negative (Neg-Trace)
[2023-10-02 09:19] LABS: Folate 12.9 ng/mL (> or = 4.0); Vitamin B12 575 pg/mL (200-900)
[2023-10-02 09:53] LABS: Creatinine Urine 112.25 mg/dL
== END 2023-10-02 07:41 | disposition home or self-care (01) ==
LOC: HO.LAB 07:40
PROVIDERS: PCP Internal Medicine; Visit Provider Internal Medicine
DX: E11.9 Type 2 diabetes mellitus without complications (principal); D75.1 Secondary polycythemia; M10.9 Gout, unspecified; E55.9 Vitamin D deficiency, unspecified; E53.8 Deficiency of other specified B group vitamins; R30.0 Dysuria; E78.00 Pure hypercholesterolemia, unspecified
CPT/HCPCS: 36415; 80053; 80061; 81003; 82043; 82306; 82570; 82607; 82746; 83036; 84443; 84550; 85025

== ENCOUNTER 2023-10-12 09:46 | Outpatient (AMB) | payer OTHER, SELFPAY ==
[2023-10-12 09:57] VITALS: BP 138/74; PULSE 72; O2SAT 98; BMI 34.0
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
== END 2023-10-12 10:42 | disposition home or self-care (01) ==
PROVIDERS: PCP Internal Medicine; Visit Provider Internal Medicine
DX: E11.9 Type 2 diabetes mellitus without complications (principal); F31.9 Bipolar disorder, unspecified; D69.6 Thrombocytopenia, unspecified; E78.00 Pure hypercholesterolemia, unspecified; J45.40 Moderate persistent asthma, uncomplicated; J30.1 Allergic rhinitis due to pollen; M1A.00X0 Idiopathic chronic gout, unspecified site, without tophus (tophi); D75.1 Secondary polycythemia; G47.33 Obstructive sleep apnea (adult) (pediatric); E55.9 Vitamin D deficiency, unspecified; M54.42 Lumbago with sciatica, left side; G47.00 Insomnia, unspecified
CPT/HCPCS: 99214

== ENCOUNTER 2024-01-08 08:16 | Outpatient (AMB) | payer OTHER, SELFPAY ==
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
[2024-01-08 08:41] VITALS: BP 140/90; PULSE 83; BMI 33.3
== END 2024-01-08 09:25 | disposition home or self-care (01) ==
PROVIDERS: PCP Internal Medicine; Visit Provider Nurse Practitioner Family
DX: Z01.818 Encounter for other preprocedural examination (principal); Z12.11 Encounter for screening for malignant neoplasm of colon
CPT/HCPCS: 99024

== ENCOUNTER → 2024-01-08 08:16 | Outpatient (BNVA) | payer OTHER, SELFPAY | PROVIDERS: PCP Internal Medicine; Visit Provider Nurse Practitioner Family | DX: Z12.11 Encounter for screening for malignant neoplasm of colon (principal) | CPT/HCPCS: 99212 ==

== ENCOUNTER 2024-02-16 06:39 | Outpatient (REF) | payer OTHER, SELFPAY ==
[2024-02-16 06:58] LABS: MANUAL DIFF FLAG NO
[2024-02-16 07:50] LABS: Appearance Urine Clear; Color Urine Yellow; Glucose Urine UA Negative (Negative); Leukocyte Esterase Urine Negative (Negative); Nitrite Urine Negative (Negative); PH 5.5 (5.0-9.0); UMIC TRIGGER UACC YES; Urine Blood Negative (Negative); Urine Ketones Negative (Negative); Urine Protein 30 (1+) mg/dL (Neg-Trace)
[2024-02-16 07:57] LABS: Basophils Absolute Auto 0.1 X10*3/uL (0.0-0.2); Basophils Percent Auto 0.9 % (0-2); Eosinophils Absolute Auto 0.1 X10*3/uL (0.0-0.4); Eosinophils Percent Auto 2.3 % (0-4); Hematocrit 45.7 % (42.0-52.0); Hemoglobin 15.5 g/dl (14.0-18.0); Imm Gran Abs Auto 0.02 X10*3/uL (0.00-0.03); Imm Gran Pct Auto 0.4 % (0.0-0.4); Lymphocytes Absolute Auto 1.4 X10*3/uL (1.2-4.9); Lymphocytes Percent Auto 25.8 % (20-40); Mean Corpuscular HGB Conc 33.9 g/dl (31.0-36.0); Mean Corpuscular Hemoglobin 26.5 pg (27.0-33.0); Mean Corpuscular Volume 78.1 fL (80.0-98.0); Mean Platelet Volume 11.7 fL (9.4-12.4); Monocytes Absolute Auto 0.7 X10*3/uL (0.1-1.2); Monocytes Percent Auto 13.5 % (2-11); Neutrophils Percent Auto 57.1 % (45-73); Platelet Count 142 X10*3/uL (160-400); Red Blood Count 5.85 X10*6/uL (4.60-5.80); Red Cell Distribution Width 14.7 % (11.0-16.0); White Blood Count 5.3 X10*3/uL (4.8-10.8)
[2024-02-16 08:03] LABS: Estimated Average Glucose 163 mg/dL; Hemoglobin A1c % 7.3 % (<6.0)
[2024-02-16 08:03] LABS: Bacteria Urine None Seen (None Seen); Hyaline Casts Urine 0-2 /LPF (0-2); RBC Urine 0-2 /HPF (0-2); Squamous Epithelial Cell Urine 0-2 /HPF (0-2); WBC Urine 0-5 /HPF (0-5)
[2024-02-16 08:33] LABS: Creatinine Urine 233.96 mg/dL; Microalbum/Creatinine Ratio Ur 72.6 ug/mg cr (<30)
[2024-02-16 08:47] LABS: Alanine Aminotransferase 49 U/L (0-40); Albumin Level 4.5 g/dL (3.5-5.0); Alkaline Phosphatase 57 U/L (39-117); Anion Gap 14 (12-20); Aspartate Amino Transferase 48 U/L (5-37); Bilirubin Total 0.6 mg/dL (0.0-1.0); Blood Urea Nitrogen 14 mg/dL (9-16); Calcium 10.2 mg/dL (8.4-10.2); Carbon Dioxide 25 mmol/L (22-29); Chloride 104 mmol/L (96-108); Cholesterol 139 mg/dL (<200); Estimated Glomerular Filt Rate > 60; Glucose Fasting 164 mg/dL (60-99); HDL Cholesterol 40 mg/dL (>40); LDL Cholesterol Calculated 57 mg/dL (<100); Potassium 3.9 mmol/L (3.3-5.1); Sodium 139 mmol/L (135-145); TSH reflex Free T4 2.78 uIU/mL (0.32-4.0); Total Protein 7.7 g/dL (6.5-8.0); Triglycerides 212 mg/dL (<150)
== END 2024-02-16 06:40 | disposition home or self-care (01) ==
LOC: HO.LAB 06:39
PROVIDERS: PCP Internal Medicine; Visit Provider Internal Medicine
DX: D64.9 Anemia, unspecified (principal); E78.00 Pure hypercholesterolemia, unspecified; E55.9 Vitamin D deficiency, unspecified; E11.9 Type 2 diabetes mellitus without complications
CPT/HCPCS: 36415; 80053; 80061; 81001; 82043; 82306; 82570; 83036; 84443; 85025

== ENCOUNTER 2024-02-22 09:14 | Outpatient (AMB) | payer OTHER, SELFPAY ==
[2024-02-22 09:16] VITALS: BP 122/80; PULSE 77; O2SAT 97; BMI 34.0
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
== END 2024-02-22 10:09 | disposition home or self-care (01) ==
PROVIDERS: PCP Internal Medicine; Visit Provider Internal Medicine
DX: E78.00 Pure hypercholesterolemia, unspecified (principal); E11.9 Type 2 diabetes mellitus without complications; D69.6 Thrombocytopenia, unspecified; F31.9 Bipolar disorder, unspecified; J45.40 Moderate persistent asthma, uncomplicated; J30.1 Allergic rhinitis due to pollen; M1A.00X0 Idiopathic chronic gout, unspecified site, without tophus (tophi); D75.1 Secondary polycythemia; G47.33 Obstructive sleep apnea (adult) (pediatric); E55.9 Vitamin D deficiency, unspecified; M54.42 Lumbago with sciatica, left side; G47.00 Insomnia, unspecified

== ENCOUNTER → 2024-02-22 09:14 | Outpatient (BNVA) | payer OTHER, SELFPAY | PROVIDERS: PCP Internal Medicine; Visit Provider Internal Medicine | DX: E78.00 Pure hypercholesterolemia, unspecified (principal); E11.9 Type 2 diabetes mellitus without complications; J45.40 Moderate persistent asthma, uncomplicated; J30.1 Allergic rhinitis due to pollen; D75.1 Secondary polycythemia; M1A.00X0 Idiopathic chronic gout, unspecified site, without tophus (tophi); E55.9 Vitamin D deficiency, unspecified; G47.33 Obstructive sleep apnea (adult) (pediatric); M54.42 Lumbago with sciatica, left side; F41.9 Anxiety disorder, unspecified; F31.9 Bipolar disorder, unspecified; E66.9 Obesity, unspecified | CPT/HCPCS: 99212 ==

== ENCOUNTER 2024-03-13 08:16 | Emergency (ER) | payer OTHER, SELFPAY ==
[2024-03-13 08:22] VITALS: BP 142/79; PULSE 82; RESP 16; TEMP 36.2; O2SAT 97; BMI 33.8
[2024-03-13 08:46] VITALS: BP 140/84; PULSE 73; RESP 16; TEMP 37; O2SAT 96
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
[2024-03-13] MEDS: methylPREDNISolone Sod Succ 125 MG/2 ML VIAL 60 MG IM (09:55)
[2024-03-13 09:58] VITALS: BP 140/84; PULSE 73; RESP 16; TEMP 37; O2SAT 96
== END 2024-03-13 09:58 | disposition home or self-care (01) ==
PROVIDERS: Emergency Provider Emergency Medicine; PCP Internal Medicine
DX: T78.40XA Allergy, unspecified, initial encounter (principal); X58.XXXA Exposure to other specified factors, initial encounter; E11.9 Type 2 diabetes mellitus without complications; E78.00 Pure hypercholesterolemia, unspecified; J45.909 Unspecified asthma, uncomplicated; Z79.02 Long term (current) use of antithrombotics/antiplatelets; Z79.899 Other long term (current) drug therapy; Z79.84 Long term (current) use of oral hypoglycemic drugs
CPT/HCPCS: 96372; 99284; J2919

== ENCOUNTER 2024-05-05 17:17 | Emergency (ER) | payer OTHER, SELFPAY ==
--- NOTE | ~2024-05-05 | US_ITS ---
EXAMINATION: US VENOUS RIGHT LOWER EXTREMITY CLINICAL INFORMATION: Right lower extremity edema and pain COMPARISON: None. TECHNIQUE: Doppler spectral analysis and color flow Doppler imaging was performed of the right lower extremity. Compression and augmentation maneuvers were performed. FINDINGS: The right common femoral, femoral, popliteal and calf veins were well-identified and normal. They demonstrate normal compressibility and color fill-in. In the mid calf, in the area of patient's pain, there is a ovoid complex collection measuring 2.4 x 0.9 x 2.7 cm. US/US venous duplex LE RT IMPRESSION: 1. No evidence for right lower extremity deep vein thrombosis. 2. Complex collection in the mid calf, possibly a hematoma. Electronically signed by: Casey Lee MD 05/05/2024 08:57 PM [facility]
--- NOTE | ~2024-05-05 | XR_ITS ---
EXAMINATION: RIGHT TIB-FIB AND RIGHT ANKLE CLINICAL INFORMATION: Fall with pain COMPARISON: None available. TECHNIQUE: 2 views tib-fib, 3 views ankle FINDINGS: No significant abnormalities seen involving the tibia-fibula or ankle. Tiny area of enthesopathy seen at the insertion of the Achilles tendon. XR/XR tibia fibula RT 2V IMPRESSION: No evidence of an acute osseous injury. Electronically signed by: Casey Lee MD 05/05/2024 07:01 PM [facility]
--- NOTE | ~2024-05-05 | XR_ITS ---
EXAMINATION: RIGHT TIB-FIB AND RIGHT ANKLE CLINICAL INFORMATION: Fall with pain COMPARISON: None available. TECHNIQUE: 2 views tib-fib, 3 views ankle FINDINGS: No significant abnormalities seen involving the tibia-fibula or ankle. Tiny area of enthesopathy seen at the insertion of the Achilles tendon. XR/XR ankle RT 2V IMPRESSION: No evidence of an acute osseous injury. Electronically signed by: Casey Lee MD 05/05/2024 07:01 PM [facility]
[2024-05-05 17:41] VITALS: BP 126/61; PULSE 83; RESP 18; TEMP 37; O2SAT 97; BMI 34.7
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
[2024-05-05 21:18] VITALS: BP 119/70; PULSE 73; RESP 18; TEMP 36.6; O2SAT 97
[2024-05-05 22:07] VITALS: BP 119/70; PULSE 73; RESP 18; TEMP 36.6; O2SAT 97
== END 2024-05-05 22:07 | disposition home or self-care (01) ==
PROVIDERS: Emergency Provider Emergency Medicine; PCP Internal Medicine
DX: M62.461 Contracture of muscle, right lower leg (principal); R60.0 Localized edema; M25.571 Pain in right ankle and joints of right foot
CPT/HCPCS: 73590; 73600; 93971; 99283; 99284

== ENCOUNTER 2024-05-09 06:30 | Day surgery (SDC) | payer OTHER, SELFPAY ==
[2024-05-07 12:40] VITALS: BMI 33.3
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
[2024-05-09 07:08] VITALS: BMI 33.1
[2024-05-09 07:11] VITALS: BP 125/80; PULSE 85; RESP 15; TEMP 36.7; O2SAT 97
[2024-05-09 07:23] LABS: Glucose, Whole Blood 172 mg/dL (60-115)
[2024-05-09] MEDS: Lactated Ringers 1,000 ML 100 ML IVCONT (07:36)
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
[2024-05-09 09:06] VITALS: BP 99/56; PULSE 83; RESP 18; TEMP 36.2; O2SAT 91
--- NOTE | 2024-05-09 09:14 | P.OPN-COLO_ITS ---
Colonoscopy Operative Note Operative Note Date of Service: 05/09/24 Narrative: Procedure: Colonoscopy Indication: Personal history of polyps Endoscopist: Martina Avendaño MD Anesthesia Provider: Dr Tai Hesnon Anesthesia type: MAC Instrument: Olympus [id number]-H190L Consent: Indication, risks vs benefits, and alternatives were discussed with the patient who gave written informed consent to proceed. EKG, pulse, pulse oximetry and blood pressure were monitored throughout the procedure. Please see anesthesia flowsheet. Procedure: The patient was brought to the procedure room and placed in the left lateral decubitus position. IV medications were administered by the anesthesia provider in attendance. A digital rectal exam was performed which was normal. A distal attachment cap was affixed to the tip of the colonoscope which was then inserted through the anus and advanced through the colon to the cecum at 75 cm,and terminal ileum. Appendiceal orifice and ileocecal valve were identified. Mucosa was carefully examined under high definition white light as the instrument was slowly withdrawn in a retrograde panoramic fashion. Retroflexion was performed in ascending colon and rectum. The procedure was not difficult. There were no immediate obvious complications. The quality of the prep was BBPS: 2+2+2 = adequate Withdrawal time 10 minutes. Limitations: No limitations. Findings: Mucosa: Normal to cecum and terminal ileum. Protruding lesions: * 1 sessile polyp of size 5 mm in transverse colon. Cold snare polypectomy was performed. The polyp was completely removed and retrieved. * Medium internal hemorrhoids without stigmata of recent bleeding. Excavated lesions: * Mild scattered diverticulosis of left sided colon. Impression: 1. Normal colon mucosa 2. Total of 1 polyp removed 3. Internal hemorrhoids 4. Diverticulosis Recommendations: - Follow path results. - Repeat colonoscopy in 7-10 years if polyp is an adenoma, 5 years if sessile serrated.
[2024-05-09 09:21] VITALS: BP 117/69; PULSE 88; RESP 16; TEMP 36.4; O2SAT 96
== END 2024-05-09 09:37 | disposition home or self-care (01) ==
PROVIDERS: PCP Internal Medicine; Visit Provider Internal Medicine
PROC: 0DJD8ZZ Inspection of Lower Intestinal Tract, Via Natural or Artificial Opening Endoscopic (ICD-10-PCS; CPT 45378; principal; 2024-05-09 08:40)
DX: Z12.11 Encounter for screening for malignant neoplasm of colon (principal); Z86.0101 Personal history of adenomatous and serrated colon polyps; D12.3 Benign neoplasm of transverse colon; K57.30 Diverticulosis of large intestine without perforation or abscess without bleeding; K64.8 Other hemorrhoids; D75.1 Secondary polycythemia; J45.909 Unspecified asthma, uncomplicated; E78.00 Pure hypercholesterolemia, unspecified; G47.33 Obstructive sleep apnea (adult) (pediatric); E55.9 Vitamin D deficiency, unspecified; D69.6 Thrombocytopenia, unspecified; M54.42 Lumbago with sciatica, left side; M10.9 Gout, unspecified; F31.9 Bipolar disorder, unspecified; E11.9 Type 2 diabetes mellitus without complications; E66.9 Obesity, unspecified; Z68.33 Body mass index [BMI] 33.0-33.9, adult; Z79.899 Other long term (current) drug therapy; Z79.84 Long term (current) use of oral hypoglycemic drugs; Z98.890 Other specified postprocedural states
CPT/HCPCS: 45385; 82947; 88305; J2003; J2704

== ENCOUNTER → 2024-05-09 06:30 | Outpatient (BNV) | payer OTHER, SELFPAY | PROVIDERS: PCP Internal Medicine; Visit Provider Internal Medicine | DX: Z12.11 Encounter for screening for malignant neoplasm of colon (principal); Z86.0100 Personal history of colon polyps, unspecified; D12.3 Benign neoplasm of transverse colon; K57.30 Diverticulosis of large intestine without perforation or abscess without bleeding | CPT/HCPCS: 45385 ==

== ENCOUNTER 2024-05-20 08:54 | Outpatient (AMB) | payer OTHER, SELFPAY ==
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
[2024-05-20 09:17] VITALS: BMI 33.1
== END 2024-05-20 09:33 | disposition home or self-care (01) ==
PROVIDERS: PCP Internal Medicine; Visit Provider Physician Assistant
DX: S86.111A Strain of other muscle(s) and tendon(s) of posterior muscle group at lower leg level, right leg, initial encounter (principal)
CPT/HCPCS: 99203

== ENCOUNTER → 2024-05-20 08:54 | Outpatient (BNVA) | payer OTHER, SELFPAY | PROVIDERS: PCP Internal Medicine; Visit Provider Physician Assistant | DX: S86.111A Strain of other muscle(s) and tendon(s) of posterior muscle group at lower leg level, right leg, initial encounter (principal) | CPT/HCPCS: 99202 ==

== ENCOUNTER 2024-06-07 09:35 | Outpatient (REF) | payer OTHER, SELFPAY ==
--- OUTSIDE RECORDS SUMMARY | 2024-06-07 09:40 | XMS_ITS | Continuity of Care Document ---
Author Organization [facility] Address [address] [address],[address] [place] [address] Phone Care Team Providers Care Net Application Architect Name Role Phone Z-Converted, Provider Unavailable Unavailabl [...] Provider Providers Copied on Encounter mic[facility], [address] [place] [address],[address], [place], [place], [id number], [place] tel:[phone] Dermatophytosis of nailOther general counseling and advice on contraceptive management 4 Z-Convert ed Provider. . [facility], [address] [place] [address],[address], [place], [place], [id number], [place] tel:[phone] Converted Locations No Information 4 Z-Convert ed Provider. . [facility], [address] [facility] [address], [place], [place], [id number], [place] tel:[phone] Simple type schizophrenia, unspecified stateNondepende nt alcohol abuse, unspecified drinking behavior [address] [facility] [place], [place], [id number] . tel:[phone] [facility], [address] [facility] [address], [place], [place], [id number], [place] tel:[phone] Converted Locations No Information Jan- 4 Z-Convert ed Provider. . [facility], [address] [address],[address], [place], [place], [id number], [place] tel:[phone] Mixed hyperlipidemia Jan- 4 Z-Convert ed Provider. . [facility], [address] [facility] [address], [place], [place], [id number], [place] tel:[phone] Converted Locations No Information Jan-0 8 4 Z-Convert ed Provider. . [facility], [address] [facility] [address], [place], [place], [id number], [place] tel:[phone] Rash and other nonspecific skin eruptionRoutine general medical examination at a health care facility Jan-0 8 4 Z-Convert ed Provider. . [facility], [address] [facility] [address], [place], [place], [id number], [place] tel:[phone] Major depressive affective disorder, single episode, severe degree, specified as with psychotic behaviorNondepe ndent alcohol abuse, in remission [address] [facility] [place], [place], [id number] . tel:[phone] Family History Family Member Type Diagnosis Age At Onset No Information Immunizations Vaccine Date Status Comments INFLUENZA VACCINE AGE 3 AND ABOVE administered Source: New Immuniza tion Record Tetanus and Diphtheria Toxoid administere d Source: New Immunization Record Payers Payer name Insurance type Covered democrat ID Authoriza tion(s) No Information Social History [...]
[2024-06-07 10:09] LABS: MANUAL DIFF FLAG NO
[2024-06-07 11:04] LABS: Basophils Percent Auto 0.6 % (0-2); Eosinophils Absolute Auto 0.1 X10*3/uL (0.0-0.4); Hematocrit 47.9 % (42.0-52.0); Hemoglobin 16.1 g/dl (14.0-18.0); Imm Gran Abs Auto 0.03 X10*3/uL (0.00-0.03); Imm Gran Pct Auto 0.6 % (0.0-0.4); Lymphocytes Absolute Auto 1.2 X10*3/uL (1.2-4.9); Lymphocytes Percent Auto 24.6 % (20-40); Mean Corpuscular HGB Conc 33.6 g/dl (31.0-36.0); Mean Corpuscular Hemoglobin 26.4 pg (27.0-33.0); Mean Corpuscular Volume 78.4 fL (80.0-98.0); Mean Platelet Volume 11.7 fL (9.4-12.4); Monocytes Absolute Auto 0.5 X10*3/uL (0.1-1.2); Monocytes Percent Auto 9.6 % (2-11); Neutrophils Absolute Auto 3.1 x10*3/uL (2.0-8.3); Neutrophils Percent Auto 62.6 % (45-73); Platelet Count 148 X10*3/uL (160-400); Red Blood Count 6.11 X10*6/uL (4.60-5.80); Red Cell Distribution Width 14.6 % (11.0-16.0)
[2024-06-07 11:11] LABS: Appearance Urine Clear; Color Urine Yellow; Glucose Urine UA Negative (Negative); Leukocyte Esterase Urine Negative (Negative); Nitrite Urine Negative (Negative); PH 5.5 (5.0-9.0); Urine Blood Negative (Negative); Urine Ketones Negative (Negative); Urine Protein Trace mg/dL (Neg-Trace)
[2024-06-07 11:40] LABS: Estimated Average Glucose 200 mg/dL; Hemoglobin A1C 291.2161 umol/L; Hemoglobin A1c % 8.6 % (<6.0); Total Hemoglobin (HGBA1C) 4155.6481 umol/L
[2024-06-07 11:43] LABS: Alanine Aminotransferase 68 U/L (0-40); Albumin Level 4.3 g/dL (3.5-5.0); Anion Gap 12 (12-20); Aspartate Amino Transferase 49 U/L (5-37); Bilirubin Total 0.5 mg/dL (0.0-1.0); Blood Urea Nitrogen 6 mg/dL (9-16); Calcium 9.7 mg/dL (8.4-10.2); Carbon Dioxide 28 mmol/L (22-29); Chloride 105 mmol/L (96-108); Cholesterol 129 mg/dL (<200); Estimated Glomerular Filt Rate > 60; Glucose Fasting 191 mg/dL (60-99); HDL Cholesterol 41 mg/dL (>40); LDL Cholesterol Calculated 48 mg/dL (<100); Potassium 4.3 mmol/L (3.3-5.1); Sodium 141 mmol/L (135-145); Total Protein 7.6 g/dL (6.5-8.0); Triglycerides 200 mg/dL (<150); Uric Acid 5.5 mg/dL (3.4-7.0)
[2024-06-07 11:59] LABS: TSH reflex Free T4 1.78 uIU/mL (0.32-4.0); Vitamin D 25-OH Total 34.2 ng/mL (>30)
[2024-06-07 12:13] LABS: Creatinine Urine 205.03 mg/dL
[2024-06-07 12:13] LABS: Alkaline Phosphatase 59 U/L (39-117)
[2024-06-10 14:08] LABS: Hematocrit 48.8 % (38.5-50.0); Hemoglobin 16.3 g/dL (13.2-17.1); MCH 26.9 pg (27.0-33.0); MCV 80.4 fL (80.0-100.0); RBC 6.07 Million/uL (4.20-5.80); RDW 14.1 % (11.0-15.0)
== END 2024-06-07 09:36 | disposition home or self-care (01) ==
LOC: HO.LAB 09:35
PROVIDERS: PCP Internal Medicine; Visit Provider Internal Medicine
DX: E78.00 Pure hypercholesterolemia, unspecified (principal); E11.9 Type 2 diabetes mellitus without complications; D64.9 Anemia, unspecified; R30.0 Dysuria; M10.9 Gout, unspecified; R71.8 Other abnormality of red blood cells; D50.8 Other iron deficiency anemias; E55.9 Vitamin D deficiency, unspecified
CPT/HCPCS: 36415; 80053; 80061; 81003; 82043; 82306; 82570; 83020; 83036; 84443; 84550; 85014; 85018; 85025; 85041

== ENCOUNTER 2024-06-25 09:51 | Outpatient (AMB) | payer OTHER, SELFPAY ==
[2024-06-25 09:56] VITALS: BP 114/72; PULSE 76; O2SAT 98; BMI 34.1
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
--- OUTSIDE RECORDS SUMMARY | 2024-06-25 10:28 | XMS_ITS | Clinical Summary ---
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 Role Phone Zeus Toth MD Primary Care Provider [phone] Allergies No known active allergies Social History Tobacco Use Types Packs/Day Years Used Date Smoking Tobacco: Never Assessed Sex and Gender Information Value Date Recorded Sex Assigned at Not on file Legal Sex Male 8:04 AM EST Gender Identity Not on file Sexual Orientation Not on file Last Filed Vital Signs Vital Sign Reading Time Taken Comments Blood Pressure 155/109 12/25/2015 10:33 PM EDT Pulse 107 12/25/2015 10:33 PM EDT Temperature 36.1 ??C (97 ??F) 12/25/2015 10:33 PM EDT Respiratory Rate 18 12/25/2015 10:33 PM EDT Oxygen Saturation 97% 12/25/2015 10:33 PM EDT Inhaled Oxygen Concentration - - Weight - - Height - - Body Mass Index - - Plan of Treatment Health Maintenance Due Date Last Done Comments HIV screening 01/09/1981 Hepatitis C screening 01/09/1986 Tetanus adult (Td q 10,TDAP once) 1988 Lipid disorder screening 2008 Colon cancer screening, Colonoscopy 01/09/2013 Diabetes screening 01/09/2013 Shingles vaccine (Shingrix) (1 of 2 - Shingrix (RZV) 2 Dose Standard Series) 01/09/2018 Influenza vaccine 12/28/2023 Covid-19 vaccine series ( - season) 2024 RSV Discussion (1 - 1-dose 7 5+ series) 01/09/2043 Meningococcal Vaccine Aged Out No dedrick maryjane eligible based on patient's age to complete this topic Pneumococcal Vaccine Aged Out No long er eligible based on patient's age to complete this topic Insurance MEDICARE MANAGED [facility] MEDICARE MANAGED [facility] MEDICARE MANAGED [facility] [place] [id number] Care Teams Dry Cleaner Hand Relationship Specialty Start Date End Date Zeus Toth MD [address] [place] [address] [place] [address] PCP - General Internal Medicine 12/25/15
--- OUTSIDE RECORDS SUMMARY | 2024-06-25 10:28 | XMS_ITS | Continuity of Care Document ---
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 . [facility], [address] [place] [address],[address], [place], [place], [id number], [place] tel:[phone] Converted Locations No Information 4 Z-Convert ed Provider. . [facility], [address], [place], [place], [id number], [place] tel:[phone] [facility] Simple type schizophrenia, unspecified stateNondepende nt alcohol abuse, unspecified drinking behavior 4 [place]. [address] [place], [place], [id number] . tel:[phone] [facility], [address], [place], [place], [id number], [place] tel:[phone] Converted Locations No Information Jan- 4 Z-Convert ed Provider. . [facility], [address] [address],[address], [place], [place], [id number], [place] tel:[phone] [facility] Mixed hyperlipidemia Jan- 4 Z-Convert ed Provider. . [facility], [address], [place], [place], [id number], [place] tel:[phone] Converted Locations No Information Jan-0 8 4 Z-Convert ed Provider. . [facility], [address], [place], [place], [id number], [place] tel:[phone] [facility] Rash and other nonspecific skin eruptionRoutine general medical examination at a health care facility Jan-0 8 4 Z-Convert ed Provider. . [facility], [address], [place], [place], [id number], [place] tel:[phone] [facility] Major depressive affective disorder, single episode, severe degree, specified as with psychotic behaviorNondepe ndent alcohol abuse, in remission 4 [place]. [address] [place], [place], [id number] . tel:[phone] Family History Family Member Type Diagnosis Age [...]
== END 2024-06-25 10:36 | disposition home or self-care (01) ==
PROVIDERS: PCP Internal Medicine; Visit Provider Internal Medicine
DX: E78.00 Pure hypercholesterolemia, unspecified (principal); E11.9 Type 2 diabetes mellitus without complications; D69.6 Thrombocytopenia, unspecified; F31.9 Bipolar disorder, unspecified; J45.40 Moderate persistent asthma, uncomplicated; J30.1 Allergic rhinitis due to pollen; M1A.00X0 Idiopathic chronic gout, unspecified site, without tophus (tophi); D75.1 Secondary polycythemia; G47.33 Obstructive sleep apnea (adult) (pediatric); L60.8 Other nail disorders; E55.9 Vitamin D deficiency, unspecified; M51.35 Other intervertebral disc degeneration, thoracolumbar region

== ENCOUNTER → 2024-06-25 09:51 | Outpatient (BNVA) | payer OTHER, SELFPAY | PROVIDERS: PCP Internal Medicine; Visit Provider Internal Medicine | DX: E78.00 Pure hypercholesterolemia, unspecified (principal); E11.9 Type 2 diabetes mellitus without complications; J45.40 Moderate persistent asthma, uncomplicated; J30.1 Allergic rhinitis due to pollen; D75.1 Secondary polycythemia; D69.6 Thrombocytopenia, unspecified; G47.33 Obstructive sleep apnea (adult) (pediatric); L60.8 Other nail disorders; E55.9 Vitamin D deficiency, unspecified; M51.35 Other intervertebral disc degeneration, thoracolumbar region; G47.00 Insomnia, unspecified; F41.9 Anxiety disorder, unspecified; F31.9 Bipolar disorder, unspecified; E66.9 Obesity, unspecified | CPT/HCPCS: 96127; 99212 ==

== ENCOUNTER 2024-10-14 08:51 | Outpatient (REF) | payer OTHER, SELFPAY ==
--- OUTSIDE RECORDS SUMMARY | 2024-10-14 08:59 | XMS_ITS | Continuity of Care Document ---
Author Organization [facility] Address [address] [address],[address] [place] [address] Phone Care Team Providers Care Manager Reading Name Role Phone Z-Converted, Provider Unavailable Unavailabl [...] Date Provider Providers Copied on Encounter [facility], [address] [place] [address],[address], [place], [place], [id number], [place] tel:[phone] [facility] Dermatophytosis of nailOther general counseling and advice on contraceptive management 4 Z-Convert ed Provider. . [facility], [address] [place] [address],[address], [place], [place], [id number], [place] tel:[phone] Converted Locations No Information 4 Z-Convert ed Provider. . [facility], [address] [facility] [address], [place], [place], [id number], [place] tel:[phone] [facility] Simple type schizophrenia, unspecified stateNondepende nt alcohol abuse, unspecified drinking behavior 4 [place] [place], [place], [id number] . tel:[phone] [facility], [address] [facility] [address], [place], [place], [id number], [place] tel:[phone] Converted Locations No Information Jan- 4 Z-Convert ed Provider. . [facility], [address] [address],[address], [place], [place], [id number], [place] tel:[phone] [facility] Mixed hyperlipidemia Jan- 4 Z-Convert ed Provider. . [facility], [address] [facility] [address], [place], [place], [id number], [place] tel:[phone] Converted Locations No Information Jan-0 8 4 Z-Convert ed Provider. . [facility], [address] [facility] [address], [place], [place], [id number], [place] tel:[phone] [facility] Rash and other nonspecific skin eruptionRoutine general medical examination at a health care facility Jan-0 8 4 Z-Convert ed Provider. . [facility], [address] [facility] [address], [place], [place], [id number], [place] tel:[phone] [facility] Major depressive affective disorder, single episode, severe degree, specified as with psychotic behaviorNondepe ndent alcohol abuse, in remission 4 [place], [place], [id number] . tel:[phone] Family History Family Member Type Diagnosis Age At Onset No Information Immunizations Vaccine Date Status Comments INFLUENZA VACCINE AGE 3 AND ABOVE administered Source: New Immuniza tion Record Tetanus and Diphtheria Toxoid administere d Source: New Immunization Record Payers Payer name Insurance type Covered constitution party ID Authoriza tion(s) No Information Social [...]
--- OUTSIDE RECORDS SUMMARY | 2024-10-14 08:59 | XMS_ITS | Clinical Summary ---
Author Organization [facility] [address] [facility] Address [address] [place] [id number] Phone Care Team Providers Care Foreign Trade Teacher Name Role Phone Zeus Toth MD Primary Care Provider [phone] Allergies No known active allergies Social History [...] cancer screening, Colonoscopy 01/09/2013 Diabetes screening 01/09/2013 Pneumococcal Vaccine (50+ ye ars) (1 of 1 - PCV) 01/09/2018 Shingles vaccine (Shingrix) (1 of 2 - Shingrix (RZV) 2 Dose Standard Series) 01/09/2018 Covid-19 vaccine series ( - 2023-25 season) 2024 Influenza vaccine 01/27/2025 RSV Immunization (1 - 1-dose 75+ series) 01/09/2043 Meningococcal Vaccine Aged Out No dedrick maryjane eligible based on patient's age to complete this topic Pneumococcal Vaccine (2 - 49 years) Aged Out No longer eligible based on patient's age to complete this topic Insurance MEDICARE MANAGED [facility] [place] [place] MEDICARE MANAGED [facility] [place] [place] MEDICARE [place]NA[place] [facility] [place] [facility] [id number] MEDICARE MANAGED [facility] [place] [facility] [id number] Care Teams Foreign Trade Teacher Relationship Specialty Start Date End Date Zeus Toth MD [address] [place] [address] [place] [address] PCP - General Internal Medicine 12/25/15
[2024-10-14 09:04] LABS: MANUAL DIFF FLAG NO
[2024-10-14 09:15] LABS: Basophils Absolute Auto 0.1 X10*3/uL (0.0-0.2); Basophils Percent Auto 0.9 % (0-2); Eosinophils Absolute Auto 0.2 X10*3/uL (0.0-0.4); Hematocrit 49.5 % (42.0-52.0); Hemoglobin 16.8 g/dl (14.0-18.0); Imm Gran Abs Auto 0.03 X10*3/uL (0.00-0.03); Imm Gran Pct Auto 0.5 % (0.0-0.4); Lymphocytes Absolute Auto 1.5 X10*3/uL (1.2-4.9); Lymphocytes Percent Auto 26.6 % (20-40); Mean Corpuscular HGB Conc 33.9 g/dl (31.0-36.0); Mean Corpuscular Hemoglobin 26.2 pg (27.0-33.0); Mean Corpuscular Volume 77.2 fL (80.0-98.0); Mean Platelet Volume 10.9 fL (9.4-12.4); Monocytes Absolute Auto 0.6 X10*3/uL (0.1-1.2); Monocytes Percent Auto 9.6 % (2-11); Neutrophils Absolute Auto 3.4 x10*3/uL (2.0-8.3); Neutrophils Percent Auto 59.4 % (45-73); Platelet Count 158 X10*3/uL (160-400); Red Blood Count 6.41 X10*6/uL (4.60-5.80); Red Cell Distribution Width 16.4 % (11.0-16.0); White Blood Count 5.7 X10*3/uL (4.8-10.8)
[2024-10-14 09:26] LABS: Estimated Average Glucose 194 mg/dL; Hemoglobin A1C 285.6189 umol/L; Hemoglobin A1c % 8.4 % (<6.0)
[2024-10-14 09:42] LABS: Appearance Urine Clear; Color Urine Yellow; Glucose Urine UA Negative (Negative); Leukocyte Esterase Urine Negative (Negative); Nitrite Urine Negative (Negative); PH 5.5 (5.0-9.0); UMIC TRIGGER UACC YES; Urine Blood Negative (Negative); Urine Ketones Negative (Negative); Urine Protein 30 (1+) mg/dL (Neg-Trace)
[2024-10-14 09:47] LABS: Bacteria Urine None Seen (None Seen); RBC Urine 0-2 /HPF (0-2); Squamous Epithelial Cell Urine 0-2 /HPF (0-2); WBC Urine 0-5 /HPF (0-5)
[2024-10-14 09:57] LABS: Alanine Aminotransferase 52 U/L (0-40); Albumin Level 4.3 g/dL (3.5-5.0); Alkaline Phosphatase 59 U/L (39-117); Anion Gap 12 (12-20); Aspartate Amino Transferase 34 U/L (5-37); Bilirubin Total 0.5 mg/dL (0.0-1.0); Blood Urea Nitrogen 13 mg/dL (9-16); Calcium 9.8 mg/dL (8.4-10.2); Carbon Dioxide 25 mmol/L (22-29); Chloride 103 mmol/L (96-108); Cholesterol 141 mg/dL (<200); Estimated Glomerular Filt Rate > 60; Glucose Fasting 180 mg/dL (60-99); HDL Cholesterol 42 mg/dL (>40); LDL Cholesterol Calculated 37 mg/dL (<100); Potassium 4.2 mmol/L (3.3-5.1); Sodium 136 mmol/L (135-145); Total Protein 7.5 g/dL (6.5-8.0); Triglycerides 312 mg/dL (<150)
[2024-10-14 10:15] LABS: TSH reflex Free T4 2.02 uIU/mL (0.32-4.0); Vitamin D 25-OH Total 34.3 ng/mL (>30)
[2024-10-14 10:17] LABS: Lactate Dehydrogenase 191 U/L (118-273)
[2024-10-14 11:13] LABS: Creatinine Urine 153.33 mg/dL
== END 2024-10-14 08:52 | disposition home or self-care (01) ==
LOC: HO.LAB 08:51
PROVIDERS: PCP Internal Medicine; Visit Provider Internal Medicine
DX: E78.00 Pure hypercholesterolemia, unspecified (principal); E11.9 Type 2 diabetes mellitus without complications; L60.8 Other nail disorders; D64.9 Anemia, unspecified; E55.9 Vitamin D deficiency, unspecified; R30.0 Dysuria
CPT/HCPCS: 36415; 80053; 80061; 81001; 82043; 82306; 82570; 83036; 83615; 84443; 85025

== ENCOUNTER 2024-10-24 10:33 | Outpatient (AMB) | payer OTHER, SELFPAY ==
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
[2024-10-24 10:39] VITALS: BP 128/78; PULSE 95; O2SAT 96; BMI 34.9
--- OUTSIDE RECORDS SUMMARY | 2024-10-24 11:01 | XMS_ITS | Clinical Summary ---
Author Organization [address] [address] Phone Care Team Providers Care Grant Coordinator Name Role Phone Zeus Toth MD Primary Care Provider [phone] Allergies No known active allergies Social History [...] Series) 01/09/2018 Covid-19 vaccine series ( - 2023- season) 2024 Influenza vaccine 01/27/2025 RSV Immunization (1 - 1-dose 75+ series) 01/09/2043 Meningococcal Vaccine Aged Out No dedrick maryjane eligible based on patient's age to complete this topic Pneumococcal Vaccine (2 - 49 years) Aged Out No longer eligible based on patient's age to complete this topic Insurance MEDICARE MANA[place] [facility] [place] MEDICARE MANA[place] [facility] [place]ICARE [place] [facility] [place] [facility] [id number] MEDICARE [place] [facility] [place] [facility] [id number] Care Teams Grant Coordinator Relationship Specialty Start Date End Date Zeus Toth MD [address] [place] [address] [place] [address] PCP - General Internal Medicine 12/25/15
== END 2024-10-24 11:07 | disposition home or self-care (01) ==
LOC: HO.HMCH 10:34
PROVIDERS: PCP Internal Medicine; Visit Provider Internal Medicine
DX: E78.00 Pure hypercholesterolemia, unspecified (principal); E11.9 Type 2 diabetes mellitus without complications; F31.9 Bipolar disorder, unspecified; J45.40 Moderate persistent asthma, uncomplicated; J30.1 Allergic rhinitis due to pollen; M1A.00X0 Idiopathic chronic gout, unspecified site, without tophus (tophi); D75.1 Secondary polycythemia; D69.6 Thrombocytopenia, unspecified; G47.33 Obstructive sleep apnea (adult) (pediatric); L60.8 Other nail disorders; E55.9 Vitamin D deficiency, unspecified; M51.35 Other intervertebral disc degeneration, thoracolumbar region

== ENCOUNTER → 2024-10-24 10:33 | Outpatient (BNVA) | payer OTHER, SELFPAY | PROVIDERS: PCP Internal Medicine; Visit Provider Internal Medicine | DX: E11.9 Type 2 diabetes mellitus without complications (principal); E78.00 Pure hypercholesterolemia, unspecified; J45.40 Moderate persistent asthma, uncomplicated; J30.1 Allergic rhinitis due to pollen; M1A.00X0 Idiopathic chronic gout, unspecified site, without tophus (tophi); D75.1 Secondary polycythemia; D69.6 Thrombocytopenia, unspecified; G47.33 Obstructive sleep apnea (adult) (pediatric); L60.8 Other nail disorders; E55.9 Vitamin D deficiency, unspecified; M51.35 Other intervertebral disc degeneration, thoracolumbar region; G47.00 Insomnia, unspecified; F41.9 Anxiety disorder, unspecified; F31.9 Bipolar disorder, unspecified; E66.9 Obesity, unspecified; Z68.34 Body mass index [BMI] 34.0-34.9, adult; Z79.84 Long term (current) use of oral hypoglycemic drugs; Z79.899 Other long term (current) drug therapy | CPT/HCPCS: 96127; 99212 ==

== ENCOUNTER 2025-01-15 13:06 | Emergency (ER) | payer OTHER, SELFPAY ==
[2025-01-15 14:05] VITALS: BP 170/77; PULSE 84; RESP 18; TEMP 36.9; O2SAT 95; BMI 35.5
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
[2025-01-15 14:18] VITALS: BP 170/77; PULSE 84; RESP 18; TEMP 36.9; O2SAT 95
--- OUTSIDE RECORDS SUMMARY | 2025-01-15 15:24 | XMS_ITS | Clinical Summary ---
Author Organization [facility] Address [address] [place] [id number] Phone Care Team Providers Care Electrolysis Operator Name Role Phone Zeus Toth MD Primary Care Provider [phone] Allergies No known active allergies Social History [...] 107 12/25/2015 10:33 PM EDT Temperature 36.1 C (97 F) 12/25/2015 10:33 PM EDT Respiratory Rate 18 [...] to complete this topic Insurance MEDICARE MANA[place] [facility] [place] [facility] [place] MED[place]ARE MANAGED [facility] [place] MEDICARE [place]NA[place] [facility] [place] [id number] Care Teams Electrolysis Operator Relationship Specialty Start Date End Date Zeus Toth MD [address] [place] [address] [place] [id number] PCP - General Internal Medicine 12/25/15
== END 2025-01-15 14:33 | disposition home or self-care (01) ==
LOC: HO.ED 14:26
PROVIDERS: Emergency Provider Emergency Medicine; PCP Internal Medicine
DX: S19.9XXA Unspecified injury of neck, initial encounter (principal); S43.431A Superior glenoid labrum lesion of right shoulder, initial encounter; V43.52XA Car driver injured in collision with other type car in traffic accident, initial encounter; Y93.9 Activity, unspecified; Y92.410 Unspecified street and highway as the place of occurrence of the external cause; Y99.8 Other external cause status
CPT/HCPCS: 99282; 99283

== ENCOUNTER 2025-01-21 10:29 | Outpatient (AMB) | payer OTHER, SELFPAY ==
--- OUTSIDE RECORDS SUMMARY | 2004-05-04 20:00 | XMS_ITS | Continuity of Care Document ---
Author Organization michelle [facility] Address [address] [address],[address] [place] [address] Phone Care Team Providers Care Corporate Communications Associate Name Role Phone Z-Converted, Provider Unavailable Unavailabl [...] Provider Providers Copied on Encounter michelle [facility], [address] [place] [address],[address], [place], [place], [id number], [place] tel:[phone] [facility] Dermatophytosis of nailOther general counseling and advice on contraceptive management 4 Z-Convert ed Provider. . [facility], [address] [place] [address],[address], [place], [place], [id number], [place] tel:[phone] Converted Locations No Information 4 Z-Convert ed Provider. . [facility], [address] [facility] [place] [facility] [address], [place], [place], [id number], [place] tel:[phone] [facility] Simple type schizophrenia, unspecified stateNondepende nt alcohol abuse, unspecified drinking behavior 4 [place] [place] [place], [place], [id number] . tel:[phone] [facility], [address] [facility] [place] [facility] [address], [place], [place], [id number], [place] tel:[phone] Converted Locations No Information Jan- 4 Z-Convert ed Provider. . [facility], [address] [address],[address], [place], [place], [id number], [place] tel:[phone] [facility] Mixed hyperlipidemia Jan- 4 Z-Convert ed Provider. . [facility], [address] [facility] [place] [facility] [address], [place], [place], [id number], [place] tel:[phone] Converted Locations No Information Jan-0 8 4 Z-Convert ed Provider. . [facility], [address] [facility] [place] [facility] [address], [place], [place], [id number], [place] tel:[phone] [facility] Rash and other nonspecific skin eruptionRoutine general medical examination at a health care facility Jan-0 8 4 Z-Convert ed Provider. . [facility], [address] [facility] [place] [facility] [address], [place], [place], [id number], [place] tel:[phone] [facility] Major depressive affective disorder, single episode, severe degree, specified as with psychotic behaviorNondepe ndent alcohol abuse, in remission 4 [place] [place] [place], [place], [id number] . tel:[phone] Family History Family Member Type Diagnosis Age At Onset No Information Immunizations Vaccine Date Status Comments INFLUENZA VACCINE AGE 3 AND ABOVE administered Source: New Immuniza tion Record Tetanus and Diphtheria Toxoid administere d Source: New Immunization Record Payers Payer name Insurance type Covered green party ID Authoriza tion(s) No Information Social History Type Description Quantity Date Captured Comments Sex Male Smoking Status No Information Sexual Orientation Straight or heterosexual Chief Complaint And Reason For Visit No [...]
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
[2025-01-21 10:37] VITALS: BP 120/78; PULSE 84; RESP 18; TEMP 36.2; O2SAT 99; BMI 35.1
--- OUTSIDE RECORDS SUMMARY | 2025-01-21 11:15 | XMS_ITS | Clinical Summary ---
Author Organization [address] [address] Phone Care Team Providers Care Centrifugal Supervisor Name Role Phone Zeus Toth MD Primary Care Provider [phone] Allergies No known active allergies Social History [...] to complete this topic Insurance MEDICARE [place] [facility] [place] [facility] [place]IC[place] [facility] [place] MED[place] [facility] [place] [id number] Care Teams Centrifugal Supervisor Relationship Specialty Start Date End Date Zeus Toth MD [address] [place] [address] [place] [phone] PCP - General Internal Medicine 12/25/15
== END 2025-01-21 12:04 | disposition home or self-care (01) ==
PROVIDERS: PCP Internal Medicine
DX: S16.1XXD Strain of muscle, fascia and tendon at neck level, subsequent encounter (principal); V89.2XXS Person injured in unspecified motor-vehicle accident, traffic, sequela

== ENCOUNTER 2025-02-24 06:42 | Outpatient (REF) | payer OTHER, SELFPAY ==
--- OUTSIDE RECORDS SUMMARY | 2004-05-04 20:00 | XMS_ITS | Continuity of Care Document ---
Author Organization michelle [facility] Address [address] [address],[address] [place] [address] Phone Care Team Providers Care Union Contract Representative Name Role Phone Z-Converted, Provider Unavailable Unavailabl e Medications Medication Instructions Dosage Effective Dates (start - stop) Status Comments Zyprexa 2.5 mg Tab 1 tab PO QHS. - Act larry Zyprexa 20 mg Tab 1 1/2 Every Day At Bedtime - Active chlorpromazine 50 mg Tab 1 QHS - Active benztropine 0.5 mg Tab 1 Two Times A Day - Active Remeron 45 mg Tab 1 QHS - Active Zoloft 100 mg Tab 1 1/2 Every Morning - Active Lipitor 10 mg Tab 1 tab. PO QD. - Acti ve Lotrisone 1 %-0.05 % Topical Cream APPLY bid as directed - Active Advance Directives Directive Yes / No Effective Date File Name No Information Encounters Encounter Description Practice Location Reason(s) For Visit Diagnoses Date Provider Providers Copied on Encounter michelle [facility], [address] [place] [address],[address], [place], [place], [id number], [place] tel:[phone] [facility] Dermatophytosis of nailOther general counseling and advice on contraceptive management Apr- 4 Z-Convert ed Provider. . [facility], [address] [place] [address],[address], [place], [place], [id number], [place] tel:[phone] Converted Locations No Information Apr- 4 Z-Convert ed Provider. . [facility], [address] [facility] [address], [place], [place], [id number], [place] tel:[phone] [facility] Simple type schizophrenia, unspecified stateNondepende nt alcohol abuse, unspecified drinking behavior 4 [place] [place], [place], [id number] . tel:[phone] [facility], [address] [facility] [address], [place], [place], [id number], [place] tel:[phone] Converted Locations No Information Jan- 4 Z-Convert ed Provider. . [facility], [address] [address],[address], [place], [place], [id number], [place] tel:[phone] [facility] Mixed hyperlipidemia Jan- 4 Z-Convert ed Provider. . [facility], [address] [facility] [address], [place], [place], [id number], [place] tel:[phone] Converted Locations No Information Jan-0 8 4 Z-Convert ed Provider. . [facility], [address] [facility] [address], [place], [place], [id number], [place] tel:[phone] [facility] Rash and other nonspecific skin eruptionRoutine general medical examination at a health care facility Jan-0 8 4 Z-Convert ed Provider. . [facility], [address] [facility] [address], [place], [place], [id number], [place] tel:[phone] [facility] Major depressive affective disorder, single episode, severe degree, specified as with psychotic behaviorNondepe ndent alcohol abuse, in remission 4 [place] [place], [place], [id number] . tel:[phone] Family History Family Member Type Diagnosis Age At Onset No Information Immunizations Vaccine Date Status Comments INFLUENZA VACCINE AGE 3 AND ABOVE administered Source: New Immuniza tion Record Tetanus and Diphtheria Toxoid administere d Source: New Immunization Record Payers Payer name Insurance type Covered libertarian ID Authoriza tion(s) No Information Social History [...]
--- OUTSIDE RECORDS SUMMARY | 2025-02-24 06:45 | XMS_ITS | Clinical Summary ---
Author Organization [address] [phone] Phone Care Team Providers Care Liquor Blender Name Role Phone Zeus Toth MD Primary Care Provider [phone] Allergies No known active allergies Social History [...] 2 Dose Standard Series) 01/09/2018 Influenza vaccine 12/27/2024 Covid-19 vaccine series (1 - 2023-25 season) 2025 RSV Immunization (1 - 1-dose 75+ series) 01/09/2043 Meningococcal B Vaccine Aged Out No l onger eligible based on patient's age to complete this topic Meningococcal Vaccine Aged Out No dedrick maryjane eligible based on patient's age to complete this topic Insurance MEDICARE [place] [facility] [place] [facility] [place] [id number] [place]ICARE [place] [facility] [place] [facility] [id number] MED[place]ARE [place] [facility] [place] [id number] Care Teams Liquor Blender Relationship Specialty Start Date End Date Zeus Toth MD [address] [place] [address] [place] [phone] PCP - General Internal Medicine 12/25/15
[2025-02-24 07:05] LABS: MANUAL DIFF FLAG NO
[2025-02-24 08:03] LABS: Hematocrit 47.1 % (42.0-52.0); Hemoglobin 15.6 g/dl (14.0-18.0); Imm Gran Abs Auto 0.04 X10*3/uL (0.00-0.03); Imm Gran Pct Auto 0.8 % (0.0-0.4); Lymphocytes Absolute Auto 1.4 X10*3/uL (1.2-4.9); Mean Corpuscular HGB Conc 33.1 g/dl (31.0-36.0); Mean Corpuscular Hemoglobin 26.0 pg (27.0-33.0); Mean Corpuscular Volume 78.5 fL (80.0-98.0); NRBC Abs Auto 0.000 X10*3/uL (0.0-0.012); NRBC Pct Auto 0.0 /100WBC (0.0-0.2); Platelet Count 141 X10*3/uL (160-400); Red Blood Count 6.00 X10*6/uL (4.60-5.80); White Blood Count 4.9 X10*3/uL (4.8-10.8)
[2025-02-24 08:44] LABS: Appearance Urine Clear; Glucose Urine UA Negative (Negative); PH 5.5 (5.0-9.0); Specific Gravity - Urine 1.015 (1.005-1.025)
[2025-02-24 08:57] LABS: Alanine Aminotransferase 50 U/L (0-40); Albumin Level 4.3 g/dL (3.5-5.0); Alkaline Phosphatase 65 U/L (39-117); Anion Gap 13 (12-20); Aspartate Amino Transferase 36 U/L (5-37); Blood Urea Nitrogen 14 mg/dL (9-16); Calcium 9.4 mg/dL (8.4-10.2); Carbon Dioxide 24 mmol/L (22-29); Chloride 105 mmol/L (96-108); Cholesterol 125 mg/dL (<200); Estimated Glomerular Filt Rate > 60; HDL Cholesterol 32 mg/dL (>40); Potassium 4.4 mmol/L (3.3-5.1); Sodium 138 mmol/L (135-145); Total Protein 7.2 g/dL (6.5-8.0); Triglycerides 334 mg/dL (<150); Uric Acid 7.1 mg/dL (3.4-7.0)
[2025-02-24 09:16] LABS: Folate 14.0 ng/mL (> or = 4.0); Vitamin B12 335 pg/mL (200-900)
[2025-02-24 09:42] LABS: Microalbum/Creatinine Ratio Ur 54.1 ug/mg cr (<30)
== END 2025-02-24 06:43 | disposition home or self-care (01) ==
LOC: HO.LAB 06:42
PROVIDERS: PCP Internal Medicine; Visit Provider Internal Medicine
DX: E11.9 Type 2 diabetes mellitus without complications (principal); E53.8 Deficiency of other specified B group vitamins; R30.0 Dysuria; M10.9 Gout, unspecified; E78.00 Pure hypercholesterolemia, unspecified; E55.9 Vitamin D deficiency, unspecified; D64.9 Anemia, unspecified
CPT/HCPCS: 36415; 80053; 80061; 81003; 82043; 82306; 82570; 82607; 82746; 83036; 84443; 84550; 85025

== ENCOUNTER 2025-02-26 13:47 | Outpatient (AMB) | payer OTHER, SELFPAY ==
--- OUTSIDE RECORDS SUMMARY | 2004-05-04 20:00 | XMS_ITS | Continuity of Care Document ---
Author Organization michelle [facility] Address [address] [address],[address] [place] [address] Phone Care Team Providers Care Skylights Assembler Name Role Phone Z-Converted, Provider Unavailable Unavailabl e Medications Medication Instructions Dosage Effective Dates (start - stop) Status Comments Zoloft 100 mg Tab 1 1/2 Every Morning - Active Remeron 45 mg Tab 1 QHS - Active Zyprexa 2.5 mg Tab 1 tab PO QHS. - Act larry Zyprexa 20 mg Tab 1 1/2 Every Day At Bedtime - Active benztropine 0.5 mg Tab 1 Two Times A Day - Active chlorpromazine 50 mg Tab 1 QHS - Active Lipitor 10 mg Tab 1 tab. PO QD. - Acti ve Lotrisone 1 %-0.05 % Topical Cream APPLY bid as directed - Active Advance Directives Directive Yes / No Effective Date File Name No Information Encounters Encounter Description Practice Location Reason(s) For Visit Diagnoses Date Provider Providers Copied on Encounter michelle [facility], [address] [place] [address],[address], [place], [place], [id number], [place] tel:[phone] [facility] Dermatophytosis of nailOther general counseling and advice on contraceptive management 4 Z-Convert ed Provider. . [facility], [address] [place] [address],[address], [place], [place], [id number], [place] tel:[phone] Converted Locations No Information 4 Z-Convert ed Provider. . [facility], [address] [facility] [address], [place], [place], [id number], [place] tel:[phone] [facility] Simple type schizophrenia, unspecified stateNondepende nt alcohol abuse, unspecified drinking behavior 4 [place] [address] [place], [place], [id number] . tel:[phone] [facility], [address] [facility] [address], [place], [place], [id number], [place] tel:[phone] Converted Locations No Information Jan- 4 Z-Convert ed Provider. . [facility], [address] [address],[address], [place], [place], [id number], [place] tel:[phone] [facility] Mixed hyperlipidemia Jan- 4 Z-Convert ed Provider. . [facility], [address] [facility] [address], [place], [place], [id number], [place] tel:[phone] Converted Locations No Information Jan-0 8 4 Z-Convert ed Provider. . [facility], [address] [facility] [address], [place], [place], [id number], [place] tel:[phone] [facility] Rash and other nonspecific skin eruptionRoutine general medical examination at a health care facility Jan-0 8 4 Z-Convert ed Provider. . [facility], [address] [facility] [address], [place], [place], [id number], [place] tel:[phone] [facility] Major depressive affective disorder, single episode, severe degree, specified as with psychotic behaviorNondepe ndent alcohol abuse, in remission 4 [place] [place] [place], [place], [id number] . tel:[phone] Family History Family Member Type Diagnosis Age At Onset No Information Immunizations Vaccine Date Status Comments INFLUENZA VACCINE AGE 3 AND ABOVE administered Source: New Immuniza tion Record Tetanus and Diphtheria Toxoid administere d Source: New Immunization Record Payers Payer name Insurance type Covered alliance party ID Authoriza tion(s) No Information Social History Type Description Quantity Date Captured Comments Sex Male Smoking Status No Information Chief Complaint And Reason For Visit No Information Reason For Referral Reason For Referral No Information History Of Present Illness Encounter Date Complaint History Of Prese nt Illness No Information Functional Status Date Functional Assessmen t No Information Instructions Date Instruction Additional Infor mation No Information Assessments Type Assessment Date No Information Patient Care Teams Name Effective Dates (start - stop) Status Members No Information
[2025-02-26 13:57] VITALS: BP 130/72; PULSE 96; TEMP 36.3; O2SAT 98; BMI 35.8
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
--- OUTSIDE RECORDS SUMMARY | 2025-02-26 15:02 | XMS_ITS | Clinical Summary ---
Author Organization [address] [address] Phone Care Team Providers Care Fisher Eel Name Role Phone Zeus Toth MD Primary Care Provider [phone] Allergies No known active allergies Social History [...] to complete this topic Insurance MEDICARE MANAGED [facility] MEDICARE MANAGED [facility] [place] [id number] MEDICARE MANAG[place] [facility] [id number] MEDICARE MANAGED [facility] [place] [id number] Care Teams Fisher Eel Relationship Specialty Start Date End Date Zeus Toth MD [address] [place] [address] [place] [id number] PCP - General Internal Medicine 12/25/15
== END 2025-02-26 14:40 | disposition home or self-care (01) ==
LOC: HO.HMCH 13:48
PROVIDERS: PCP Internal Medicine; Visit Provider Internal Medicine
DX: E78.00 Pure hypercholesterolemia, unspecified (principal); E11.9 Type 2 diabetes mellitus without complications; F31.9 Bipolar disorder, unspecified; J45.40 Moderate persistent asthma, uncomplicated; J30.1 Allergic rhinitis due to pollen; M1A.00X0 Idiopathic chronic gout, unspecified site, without tophus (tophi); D75.1 Secondary polycythemia; D69.6 Thrombocytopenia, unspecified; G47.33 Obstructive sleep apnea (adult) (pediatric); L60.8 Other nail disorders; E55.9 Vitamin D deficiency, unspecified; M51.35 Other intervertebral disc degeneration, thoracolumbar region

== ENCOUNTER → 2025-02-26 13:47 | Outpatient (BNVA) | payer OTHER, SELFPAY | PROVIDERS: PCP Internal Medicine; Visit Provider Internal Medicine | DX: E11.9 Type 2 diabetes mellitus without complications (principal); E78.00 Pure hypercholesterolemia, unspecified; J45.40 Moderate persistent asthma, uncomplicated; J30.1 Allergic rhinitis due to pollen; M1A.00X0 Idiopathic chronic gout, unspecified site, without tophus (tophi); D75.1 Secondary polycythemia; D69.6 Thrombocytopenia, unspecified; G47.33 Obstructive sleep apnea (adult) (pediatric); L60.8 Other nail disorders; E55.9 Vitamin D deficiency, unspecified; M51.35 Other intervertebral disc degeneration, thoracolumbar region; G47.00 Insomnia, unspecified; F41.9 Anxiety disorder, unspecified; F31.9 Bipolar disorder, unspecified; E66.9 Obesity, unspecified; D64.9 Anemia, unspecified; R30.0 Dysuria; Z68.35 Body mass index [BMI] 35.0-35.9, adult | CPT/HCPCS: 96127; 99212 ==